=== PATIENT | male | born 1945 | race Caucasian/White ===

== ENCOUNTER → 2024-01-18 15:10 | Outpatient (REF) | payer MEDICARE, OTHER, SELFPAY | LOC: RCS 15:10 | PROVIDERS: ATTENDING PHYSICIAN Internal Medicine; FAMILY PHYSICIAN Family Medicine | DX: I42.8 Other cardiomyopathies (principal); Z95.2 Presence of prosthetic heart valve; T82.897D Other specified complication of cardiac prosthetic devices, implants and grafts, subsequent encounter; I25.10 Atherosclerotic heart disease of native coronary artery without angina pectoris | CPT/HCPCS: 93306 ==

== ENCOUNTER → 2024-03-10 13:03 | Outpatient (REF) | payer MEDICARE, OTHER, SELFPAY | LOC: RAD 13:03 | PROVIDERS: ATTENDING PHYSICIAN Surgery Vascular Surgery; FAMILY PHYSICIAN Family Medicine | DX: I73.9 Peripheral vascular disease, unspecified (principal) | CPT/HCPCS: 93922; 93925 ==

== ENCOUNTER → 2024-04-04 12:03 | Outpatient (REF) | payer MEDICARE, OTHER, SELFPAY | LOC: RAD 12:03 | PROVIDERS: ATTENDING PHYSICIAN Internal Medicine Critical Care Medicine; FAMILY PHYSICIAN Family Medicine | DX: J47.9 Bronchiectasis, uncomplicated (principal) | CPT/HCPCS: 71250 ==

== ENCOUNTER → 2024-05-06 11:07 | Outpatient (REF) | payer MEDICARE, OTHER, SELFPAY | LOC: MRI 3T 11:07 | PROVIDERS: ATTENDING PHYSICIAN Psychiatry & Neurology Neurology; FAMILY PHYSICIAN Family Medicine | DX: M54.50 Low back pain, unspecified (principal); M54.17 Radiculopathy, lumbosacral region | CPT/HCPCS: 72148 ==

== ENCOUNTER → 2024-12-05 07:47 | Outpatient (REF) | payer MEDICARE, OTHER, SELFPAY | LOC: RCS 07:47 | PROVIDERS: ATTENDING PHYSICIAN Internal Medicine; FAMILY PHYSICIAN Family Medicine | DX: Z01.810 Encounter for preprocedural cardiovascular examination (principal); I25.10 Atherosclerotic heart disease of native coronary artery without angina pectoris; I73.9 Peripheral vascular disease, unspecified | CPT/HCPCS: 78452; 93017; A9500; J2785 ==

== ENCOUNTER 2025-02-19 22:46 | Inpatient (IN) | payer MEDICARE, OTHER, SELFPAY ==
[2025-02-19] VITALS (9 sets, daily range): BP systolic 105–132; BP diastolic 45–61; BMI 26.4; BMI 25.5
--- NOTE | 2025-02-19 13:08 | ED.GENMED ---
History of Present Illness
General
Chief Complaint: Abnormal Lab Value
Time Seen by Provider: 02/19/25 12:33
History of Present Illness
History of Present Illness:
Patient presents to the emergency department from nursing facility with concern for infection. He was admitted to the half-way after lumbar spinal surgery and subsequent infection. He has a PICC line in the left upper extremity. Labs were
done at the facility which showed rising white blood cell count to 12.7 and elevated CRP. Patient is unsure of the exact surgery but states that his doctor will be calling the emergency department. Patient denies any acute complaints. Denies any
URI symptoms, cough, sore throat, chest pain, abdominal pain, diarrhea, urinary symptoms. Endorses persistent low back pain that is unchanged.
Per Dr Lee with ID [id number]
CAD, stent, AVR
L4-L5 decompression in November c/b wound dehiscense s/p debridement in December. Bone culture had pseudomonas, on cefepime 1g q8h since December
periodic elevation of LFTs chronically
Past History
Past History
ED Past Medical History: GERD, Hypercholesterolemia and Valvular disease
ED Past Surgical History: Cardiac (Aortic valve replacement with a bovine valve 2006)
Social History
Tobacco: Non-smoker
Alcohol: Occasional
Drug: None
Personal:
Living: with family
Family History
Family History: Negative Diabetes, Hypertension, Early CAD, Asthma or Cancer
Phy Exam
Physical Exam
Physical Exam:
GENERAL APPEARANCE: NAD, well developed/ well nourished
EYES lids/conjunctiva normal
EARS/NOSE/THROAT Mucous membranes moist, uvula midline without oral pharyngeal erythema, exudate or swelling
HEAD/NECK normocephalic atraumatic, neck is supple.
RESPIRATORY respiratory effort normal, speaks in full sentences, no accessory muscle use. Lungs clear to auscultation without rhonchi, wheezes, rales
CARDIAC Regular rate and rhythm, no edema.
ABDOMINAL Soft, ND/NT.
BACK there is a midline lumbar incision with a small amount of dehiscence that appears chronic in the lower third. There is some granulation tissue but no purulence or erythema. There is a suture placed in the prior drain site just left and
inferior to the incision. There is no purulence or erythema from this region either. Sacral decubitus ulcer present. No purulence or significant surrounding erythema
MUSCLES/EXTREMITIES No abnormal range of motion, no swelling.
SKIN Warm, pink and dry. No rashes
NEUROLOGICAL Speech is clear and appropriate. Normal level of consciousness. 5/5 strength in all extremities.
PSYCH Normal mood and affect. Judgement/competence is appropriate
Sepsis
Sepsis Screening
Sepsis Assessment: Sepsis
Sepsis Screen
Sepsis Screen: Sepsis
Date: 02/19/25
Time: 21:20
Course
Orders/Labs/Results
Orders:
Orders
02/19/25 12:52
CR Chest - 2 Views Urgent
Comment:
Reason For Exam: rule out pneumonia
02/19/25 13:18
Complete Blood Count/With Diff Urgent
Comprehensive Metabolic Panel Urgent
Lactic Acid Q4H
Comment: CANCEL 2nd LACTIC ACID IF 1st LACTIC ACID IS LESS THAN 2
Blood Culture Q30M
OZZY Source: Blood/Venous
Specimen Description:
Blood Culture Q30M
OZZY Source: Blood/Venous
Specimen Description:
02/19/25 13:20
Urinalysis Reflex To Culture Urgent
Date Specimen was Collected: 02/19/25
Time Specimen was Collected: 13:19
Urine Microscopic Reflex Cult Urgent
02/19/25 13:36
Cefepime HCl [Maxipime] 1,000 mg IV NOW STA
02/19/25 13:48
Sterile Water [Sterile Water For Injection] 10 ml .ROUTE .[facility]
02/19/25 14:53
COVID-19 Antigen Urgent
Source: Nasal Swab
Influenza A+B Rapid Molecular Urgent
OZZY Source: Nasal Swab
Specimen Description:
02/19/25 17:54
Acetaminophen [Tylenol] 500 mg PO NOW STA
02/19/25 21:14
Acetaminophen [Tylenol] 500 mg PO NOW STA
02/19/25 22:00
Cefepime HCl [Maxipime] 1,000 mg IV 2200
Abnormal Lab Results
02/19/25 02/19/25
13:18 13:20
WBC 10.9 H 10^3/uL
(4.8-10.8)
RBC 3.53 L 10^6/uL
(4.70-6.10)
Hgb 9.9 L g/dL
(13.0-18.0)
Hct 31.3 L %
(39.0-52.0)
MCHC 31.6 L g/dL
(33.0-37.0)
Abs Immat Gran (auto) 0.1 H 10^3/uL
(0-0.05)
Absolute Neuts (auto) 8.9 H 10^3/uL
(1.4-6.5)
Absolute Lymphs (auto) 0.4 L 10^3/uL
(1.2-3.4)
Absolute Monos (auto) 0.9 H 10^3/uL
(0.1-0.6)
Immature Gran % 0.6 H %
(0-0.5)
Neutrophils % 81.8 H %
(42.2-75.2)
Lymphocytes % 3.8 L %
(20.5-51.1)
BUN 33 H mg/dl
(9-20)
Glucose 106 H mg/dl
(70-99)
AST 117 H U/L
(17-59)
ALT 83 H U/L
(0-50)
Alkaline Phosphatase 252 H U/L
(38-126)
Ur Occult Blood Reflex 3+ A
(Negative)
Urine Bacteria (Reflex) Few A
(Negative)
Urine Albumin (Reflex) 3+ A
(Neg - Trace)
02/19/25 13:18
02/19/25 13:18
Vital Signs
Initial and Last Documented VS:
Initial Vital Signs
Pulse Resp BP Pulse Ox
91 24 117/45 98
02/19/25 12:19 02/19/25 12:19 02/19/25 12:19 02/19/25 12:19
Last Documented Vital Signs
Temp Pulse Resp BP Pulse Ox
98.1 F 85 16 123/56 98
02/19/25 14:00 02/19/25 19:12 02/19/25 19:12 02/19/25 19:12 02/19/25 19:12
*Pulse Oximetry
SaO2: 95
Oxygen Mode of Delivery: Room air
Patient hypoxic: no
*Critical Care Note
Total Time (30-74mins, 75-104mins- exclusive of procedures): Not Applicable
ED Attending Note
ED Attending Note
ED Attending Note:
Patient is generally well-appearing without evidence of sepsis clinically however given his rising white blood cell count and indwelling catheter, recent surgery, will admit to rule out bacteremia or sepsis.
Also a possibility the patient has a flareup of his PMR. However, given his difficulty with his wound healing, will forego starting steroids at this time. Attempted to admit patient to the hospital however recommended transfer for evaluation by
patients spine surgeon prior to starting any corticosteroid therapy. Also, rheumatology not available at .
Attempting transfer at this time
Spoke to hospitalist at [facility] who requested I speak to the spine surgeon to see if the patient could be admitted to their service
Transfer center unable to reach quality assurance consultant spine surgeon or patients spine surgeon for roughly 4 hours
Now attempting to admit to [facility] hospitalist again.
[facility]
No beds available, will admit here while awaiting bed.
-
Portions of this chart may have been created with voice recognition software.� Occasional wrong word or��sound alike� substitutions may have occurred due to the inherent limitations of voice recognition software.
Discharge Plan
Departure
Presentation/result/management discussed w/ accepting MD/DO: Hospitalist
Discharge Problem:
Leukocytosis
Prescriptions:
No Action
alfuzosin [Uroxatral] 10 MG tablet extended release 24 hr
10 mg PO DAILY
coenzyme Q10 [Co Q-10] 100 MG capsule
200 mg PO DAILY
nitroglycerin 0.4 MG tablet, sublingual
0.4 mg sublingual [id number] PRN (Reason: chest pain) Qty: 25 3RF
omeprazole 20 MG capsule,delayed release(DR/EC)
20 mg PO DAILY
tramadol 50 mg Tablet
50 mg PO Q6HPRN PRN (Reason: mderate pains) Qty: 0
aspirin 81 MG tablet,delayed release (DR/EC)
81 mg PO HS
famotidine 20 MG tablet
20 mg PO DAILY
amlodipine 5 MG tablet
5 mg PO DAILY
montelukast 10 MG tablet
10 mg PO QPM
finasteride 5 MG tablet
5 mg PO DAILY
cyanocobalamin (vitamin B-12) 1,000 mcg Tablet
1,000 mcg PO DAILY
Theragen Tablet
1 tab PO DAILY
hydromorphone 2 mg Tablet
2 mg PO Q4HPRN PRN (Reason: severe pains)
magnesium hydroxide [Milk of Magnesia] 400 mg/5 mL Suspension
2,400 mg PO DAILYPRN PRN (Reason: constipation)
bisacodyl [Dulcolax (bisacodyl)] 10 mg Suppository
10 mg ID DAILYPRN PRN (Reason: constipation)
Fleet Enema 19-7 gram/118 mL Enema
118 ml ID DAILYPRN PRN (Reason: constipation)
pyridoxine (vitamin B6) 50 mg Tablet
50 mg PO DAILY
hydrocortisone 2.5 % Cream
1 applic TOPICAL DAILY
furosemide [Lasix] 20 mg Tablet
20 mg PO MOWEFR
metoprolol succinate [Toprol XL] 25 mg Tablet Extended Release 24 Hr
25 mg PO DAILY
fluticasone propion-salmeterol [Advair Diskus] 100-50 mcg/dose Blister With Device
1 inh INHALATION R BID
colchicine 0.6 mg Tablet
0.6 mg PO BID
ezetimibe [Zetia] 10 mg Tablet
10 mg PO DAILY
rosuvastatin [Crestor] 40 mg Tablet
40 mg PO HS
Saccharomyces boulardii [Florastor] 250 mg Capsule
250 mg PO DAILY
lactulose 10 gram/15 mL Solution
20 g PO .[id number] PRN (Reason: constipation)
cholecalciferol (vitamin D3) [Vitamin D3] 25 mcg (1,000 unit) Tablet
25 mcg PO DAILY
calcium carbonate-vitamin D3 [Calcium 500 + D] 500 mg-10 mcg (400 unit) Tablet
1 tab PO DAILY
diclofenac sodium [Voltaren] 1 % Gel
4 g TOPICAL TID
cefepime in dextrose 5 % 2 gram/50 mL Piggyback
1 g IV TID
Rx Instructions:
give until 03/03/25
magnesium oxide 400 mg magnesium Tablet
400 mg PO DAILY
Senna Plus 8.6-50 mg Capsule
1 tab PO BID
Referrals:
Tenzin Drake MD [Family Provider, Family Practice]
Interventions
Interventions:
*Risk Screen - Suicide Last Done: 02/19/25 12:27
*General Assessment Last Done: 02/19/25 12:27
*Neglect/Abuse Screening Last Done: 02/19/25 12:27
*ED COVID-19 Vaccine History Last Done: 02/19/25 13:31
Discharge Date and Time
Print Language: MALAYSIAN
[2025-02-19 13:29] LABS: Hematocrit 31.3 % (39.0-52.0); Hemoglobin 9.9 g/dL (13.0-18.0); Mean Corp Hgb Conc. 31.6 g/dL (33.0-37.0); Mean Corpuscular Volume 88.7 fL (80.0-94.0); Nucleated Red Blood Cells % 0 % (-); Platelet Count 283 10^3/uL (130-400); Red Cell Dist. Width 13.3 % (11.5-14.5)
[2025-02-19 13:41] LABS: Urine Character Clear (Clear)
[2025-02-19] MEDS: MAXIPIME 1000 MG IV ×2 (13:54→21:20)
[2025-02-19 14:02] LABS: Urine Squamous Cell 0-2 /LPF (Few)
[2025-02-19 14:04] LABS: Urine Red Blood Cell 0-2 /HPF (0-2); Urine White Cell 0-2 /HPF (0-5)
[2025-02-19 14:14] LABS: ALT (SGPT) 83 U/L (0-50); AST (SGOT) 117 U/L (17-59); Albumin 3.6 g/dl (3.5-5.0); Alkaline Phosphatase 252 U/L (38-126); Blood Urea Nitrogen 33 mg/dl (9-20); Calcium 9.3 mg/dl (8.4-10.2); Carbon Dioxide 24 mmol/L (22-30); Chloride 105 mmol/L (98-107); Estimated Creatinine Clearance 64 ml/min; Glucose 106 mg/dl (70-99); Potassium 4.1 mmol/L (3.5-5.1); Sodium 135 mmol/L (135-145); Total Protein 6.3 g/dl (6.3-8.2); eGFR > 60.00
[2025-02-19 15:18] LABS: COVID-19 Antigen Negative (Negative)
--- NOTE | 2025-02-19 15:32 | HPS.HSE ---
Addendum entered and electronically signed by Les Falk MD 02/19/25 16:36:
This is a consultation note
79-year-old male with extensive past medical history of laminectomy status post complication with wound dehiscence status post debridement and wound VAC placement. Patient had extensive surgery done by orthopedic and plastic surgery. Patient
recently underwent for wound VAC removal. Patient also had CSF leak and was also found to have Pseudomonas infection. Patient was started on IV antibiotics with cefepime with plan for ended March 03, 2025. Patient antibiotics are being managed
by Dr. Nair. Of note patient also has history of polymyalgia rheumatica and for the past 1 week has significant right upper extremity pain, bilateral hip pain and weakness. Patient mobility has significantly decreased. Patient underwent workup at
the assisted where it was found that patient elevated WBC and increase in inflammatory markers. Patient was sent in to the hospital. There was concern that patient with rheumatological flareup. Patient appetite also been decreased. Patient
not on chronic steroids for PMR.
General no acute distress
HEENT neck is supple trachea is midline
Pulmonary nonlabored respiration, speaking in full sentences,
Abdomen nondistended
Musculoskeletal-lumbar region open wound with drainage noted on the dressing. Upon deep palpation patient with pain however no drainage was noted. Patient also with sacral wound.
Extremities 2+ pitting edema bilateral lower extremity
Neuro awake alert oriented.
Assessment and plan
79-year-old male with extensive past medical history status post laminectomy status post debridement status post wound VAC placement status post infection on IV cefepime. Patient also with wound dehiscence and now with weakness associated with
possible PMR flareup with need for patient to be started on glucocorticoids. Patient case was discussed with his infectious disease doctor. per patient's spouse infectious disease Dr. Lee did recommend patient to be transferred to [facility] however patient was already on his way to the hospital. Discussed case with regarding for starting glucocorticoids as patient with infection active and wound dehiscence. He did mention that his risk versus benefit ratio
especially in the setting of wound dehiscence not complete closure will need to be weighed in and will defer to family. This was discussed with patient and family that this is a extremely complicated situation with wound being not completely
closed and with active infection undergoing treatment. Patient also with elevated leukocytosis and inflammatory marker. Patient care would be better served at the primary care institution where he underwent surgery and the wound being looked after
patient primary surgical team and also by infectious disease doctor and consider rheumatological evaluation. Family agreed for patient to be transferred to [facility]. This was relayed with ER attending who will initiate transfer.
I spent a total of 65 minutes with the patient or on the floor. More than 50% of this time involved counseling and coordination of care.
Addendum entered and electronically signed by VICKIE Gunderson 02/19/25 16:28:
Below note serves as a consult note not H&P.
Original Note:
Family Physician
-
Family Physician: Tenzin Drake
Chief Complaint
-
abnormal out patient labs
History of Present Illness
Patient is a 79-year-old male with past medical history significant for hypertension, hyperlipidemia, CAD, nonischemic cardiomyopathy, PAD, BPH, GERD and Hx polymyalgia rheumatica who presented to [facility] ED for evaluation of abnormal out patient labs.
Patient was admitted to rehab facility post laminectomy with post surgical complications including infection from surgical wound infection. Rehab noted increased WBC and elevated CRP and felt patient needed workup in ED. Patient had L4-L5
decompression in November c/b wound dehiscense s/p debridement in December. Bone culture had pseudomonas, on cefepime 1g q8h since December with end date of 03/03/2025. Patient denies any acute complaints at this time. Denies fever, chills, cough, shortness
of breath, nausea, vomiting, diarrhea or urinary symptoms.
Medical History
Past Medical History
Past Medical History: Reports Other
Additional Past Medical History:
hypertension
hyperlipidemia
CAD
nonischemic cardiomyopathy
PAD
BPH
GERD
polymyalgia rheumatica
Past Surgical History: Reports Other
Additional Past Surgical History:
Hemorrhoidectomy
Aortic Valve 04/[address] [facility] [address] Valladares
R Fem bypass Dr. Grove [facility] 02/2017
plastic surgery skin graft R foot
rt foot bunionectomy
Sinus sx x2 1995, 2010
06/15 2 stents OM@ and RCA
ERCP 2021
colonoscopy 01/2022
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
L4-L5 decompression 11/2024
Social History
Tobacco: Non-smoker
Alcohol: Occasional
Drug: None
Personal:
Family History
Family History: Not pertinent
Allergies / Home Medications
Allergies reflects when Allergies were last updated in [facility].
Home Medications with original date entered in [facility]
Allergy/Medication List:
Allergies
Allergy/AdvReac Type Severity Reaction Status Date / Time
adhesive tape Allergy Unknown Verified 02/19/25 12:19
amoxicillin (From Augmentin) Allergy Unknown Verified 02/19/25 12:19
ceftriaxone Allergy Rash Verified 02/19/25 12:19
clavulanic acid (From Allergy Unknown Verified 02/19/25 12:19
Augmentin)
clopidogrel (From Plavix) Allergy Rash Verified 02/19/25 12:19
hydroxychloroquine sulfate Allergy Rash Verified 02/19/25 12:19
(From Plaquenil)
oxycodone Allergy Unknown Verified 02/19/25 12:19
sulfamethoxazole (From Allergy Hives Verified 02/19/25 12:19
Bactrim)
trimethoprim (From Bactrim) Allergy Hives Verified 02/19/25 12:19
amoxicillin trihydrate (From AdvReac vomiting Verified 02/19/25 12:19
Augmentin)
pantoprazole (From Protonix) AdvReac Nausea Verified 02/19/25 12:19
Home Medications
alfuzosin 10 mg tablet,extended release 24 hr (Uroxatral) 10 mg PO DAILY 06/03/10
coenzyme Q10 100 mg capsule (Co Q-10) 200 mg PO DAILY 06/12/18
nitroglycerin 0.4 mg sublingual tablet 0.4 mg sublingual [id number] PRN chest pain #25 tabs 06/13/18
omeprazole 20 mg capsule,delayed release 20 mg PO DAILY 01/24/19
tramadol 50 mg tablet 50 mg PO Q6HPRN PRN mderate pains ##0 09/09/20
amlodipine 5 mg tablet 5 mg PO DAILY 06/13/21
aspirin 81 mg tablet,delayed release 81 mg PO HS 06/13/21
famotidine 20 mg tablet 20 mg PO DAILY 06/13/21
finasteride 5 mg tablet 5 mg PO DAILY 06/13/21
montelukast 10 mg tablet 10 mg PO QPM 06/13/21
Saccharomyces boulardii 250 mg capsule (Florastor) 250 mg PO DAILY 02/19/25
bisacodyl 10 mg rectal suppository (Dulcolax (bisacodyl)) 10 mg AR DAILYPRN PRN constipation 02/19/25
calcium 500 mg (as carbonate)-vitamin D3 10 mcg (400 unit) tablet (Calcium 500 + D) 1 tab PO DAILY 02/19/25
cefepime 2 gram/50 mL in dextrose 5 % intravenous piggyback 1 g IV TID 02/19/25
cholecalciferol (vitamin D3) 25 mcg (1,000 unit) tablet (Vitamin D3) 25 mcg PO DAILY 02/19/25
colchicine 0.6 mg tablet 0.6 mg PO BID 02/19/25
cyanocobalamin (vitamin B-12) 1,000 mcg tablet 1,000 mcg PO DAILY 02/19/25
diclofenac sodium 1 % topical gel 4 g topical TID b/l shoulders 02/19/25
ezetimibe 10 mg tablet (Zetia) 10 mg PO DAILY 02/19/25
fluticasone 100 mcg-salmeterol 50 mcg/dose blistr powdr for inhalation (Advair Diskus) 1 inh inhalation R BID 02/19/25
furosemide 20 mg tablet (Lasix) 20 mg PO MOWEFR 02/19/25
hydrocortisone 2.5 % topical cream 1 applic topical DAILY right flank 02/19/25
hydromorphone 2 mg tablet 2 mg PO Q4HPRN PRN severe pains 02/19/25
lactulose 10 gram/15 mL oral solution 20 g PO .[id number] PRN constipation 02/19/25
magnesium hydroxide 400 mg/5 mL oral suspension (Milk of Magnesia) 2,400 mg PO DAILYPRN PRN constipation 02/19/25
magnesium oxide 400 mg PO DAILY 02/19/25
metoprolol succinate 25 mg tablet,extended release 24 hr (Toprol XL) 25 mg PO DAILY 02/19/25
pyridoxine (vitamin B6) 50 mg tablet 50 mg PO DAILY 02/19/25
rosuvastatin 40 mg tablet (Crestor) 40 mg PO HS 02/19/25
sennosides 8.6 mg-docusate sodium 50 mg capsule (Senna Plus) 1 tab PO BID 02/19/25
sodium phosphates 19 gram-7 gram/118 mL enema (Fleet Enema) 118 ml AR DAILYPRN PRN constipation 02/19/25
therapeutic multivitamin 1 tab PO DAILY 02/19/25
Review of Systems
-
History Source: Patient
Constitutional: Reports No Symptoms
EENT: Reports No Symptoms
Respiratory: Reports No Symptoms
Cardiac: Reports No Symptoms
Abdomen/GI: Reports No Symptoms
: Reports No Symptoms
Musculoskeletal: Reports No Symptoms
Skin: Reports No Symptoms
Neurological: Reports No Symptoms
Endocrine: Reports No Symptoms
Hematologic/Lymphatic: Reports No Symptoms
Psych: Reports No Symptoms
Physical Exam
Vital Signs
Vital Signs
Temp Pulse Resp BP Pulse Ox
98.1 F 84 17 128/51 96
02/19/25 14:00 02/19/25 15:00 02/19/25 15:00 02/19/25 15:00 02/19/25 15:00
Physical Exam
General: Well Developed, Well Nourished, No Apparent Distress and Conversant
HEENT: NormoCephalic, Moist mucous membranes, Atraumatic, Nose Appears Normal and Ears Appear Normal
Respiratory: Clear and Non Labored Respirations; No Wheezes, Rales or Rhonchi
Cardiac: S1/S2 and Regular Rhythm; No Peripheral Edema
GI: Soft, Non Tender, Non Distended and Normal Bowel Sounds; No Organomegaly
Rectal: Deferred by Provider
Genito-urinary: Deferred by me
Musculoskeletal: No Clubbing, No Cyanosis and No Edema
Skin: Warm and IV/Catheter Site
Neuro: Awake, AO x 3 and Nonfocal/grossly intact
Psych: Calm
Laboratory Results
-
02/19/25 13:18
02/19/25 13:18
Laboratory Results
Lactic Acid Cancelled 02/19/25 17:00
Total Bilirubin 0.9 mg/dl (0.2-1.3) 02/19/25 13:18
AST 117 U/L (17-59) H 02/19/25 13:18
ALT 83 U/L (0-50) H 02/19/25 13:18
Alkaline Phosphatase 252 U/L (38-126) H 02/19/25 13:18
Data Reviewed
-
Diagnostic Radiology: Report Reviewed by me (CXR: No acute disease of the chest.)
Lab Data: Labs Reviewed by me (WBC 10.9, hgb 9.9, hct 31.3, Neut 81.8, AST 117, ALT 83, Alk Phos 252)
Impression/Plan
-
IMPRESSION/PLAN:
#abnormal out patient lab results
#current infectious process vs. PMR exacerbation vs.
WBC 10.9, hgb 9.9, hct 31.3, Neut 81.8, AST 117, ALT 83, Alk Phos 252
CXR: No acute disease of the chest.
- Admit to med/surg
- continue IV cefepime q8
- start prednisone 40mg, monitor for improvement
- consider transfer to [facility] if no improvement
#hypertension
- continue amlodipine and metoprolol
#hyperlipidemia
- continue ezetimibe and rosuvastatin
#CAD
#nonischemic cardiomyopathy
- continue aspirin
#PAD
#BPH
- continue alfuzosin and finasteride
#GERD
- continue famotidine and omeprazole
#Hx polymyalgia rheumatica
Code status: full code
DVT prophylaxis: lovenox sq
[2025-02-19] MEDS: TYLENOL 500 MG PO ×2 (18:09→21:20)
--- NOTE | 2025-02-19 21:40 | W.PN.UPDATE ---
Update Note
Progress Note Update
This is an update to the initial H&P which was stated to be a consult note but patient has not been admitted pending availability of bed at the transfer receiving institution.
I agree with the initial H&P as well as the addendum placed by the hospitalist. I concur with the general overview of the plan.
Briefly, patient is a 79-year-old with past medical history significant for laminectomy status post complication with dehiscence, status post debridement and wound VAC placement been managed extensively by orthopedic and plastic surgery who has now
undergone a wound VAC removal complicated by CSF leak and found to have Pseudomonas infection on chronic IV antibiotics with cefepime that is planned to end for March 03 who presents to the emergency department with weakness. Stated in prior
notes, there is concern for wound dehiscence and also concern for flare of his polymyalgia rheumatica. He is not chronically on steroids for PMR. He has suffered decreased mobility. In the [facility] and was found to have elevated inflammatory
markers and WBCs and sent to the emergency department for further evaluation.
In the ED he has been afebrile, blood pressure was 120/56 pulse of 83 and he was satting 98% on room air. CBC shows a white count of 10.9 but otherwise unremarkable electrolytes. Creatinine was stable.
Examination of the spine shows lumbar region open wound with drainage noted on the dressing. Upon deep palpation patient with pain however no drainage was noted. Patient also with sacral wound.
Patient has been managed by team at [facility]. He has Dr. Lee as a infectious disease specialist and is plastics and orthopedic surgeon were at [place]. After extensive discussion with Dr. Orozco it was felt that the patient will be better
staffed pain way can be evaluated by surgery. ED initiated transfer however the surgeon could not be reached and the transfer was made to the hospitalist service at [place] and patient is awaiting a bed. The patient has been in the ED for over 9
hours and it is unclear when a bed will be available. Will admit here pending the availability of the bed.
- Immediate plans are as follows
- Blood cultures, wound cultures
- Continue IV cefepime
- Broaden if spike fever or if sensitivities differ on culture
- Continue pain control
- With regards to possible PMR, cannot differentiate from an acute infectious process at this time and given the possibility of ongoing infection we will hold off on steroids
- ID consultation
Will notify family about the delay in transfer due to lack of bed availability and keeping patient here for medical management until bed opens up at pain
[2025-02-20] MEDS: DICLOFENAC 1% TOPICAL GEL 4 GRAM TOPICAL ×2 (00:12→08:31)
[2025-02-20] MEDS: ASPIR LOW (ENTERIC COATED) 81 MG PO ×2 (00:15→21:11)
[2025-02-20] MEDS: CRESTOR 40 MG PO ×2 (00:15→21:11)
--- NOTE | 2025-02-20 05:13 | PTCARENOTE ---
Pt admitted from ED. AAOx3. Pt afebrile, VSS. L arm PICC and R forearm IV C/D/I. Lungs clear, pt on room air. OOB to chair with assist x2. Pt voiding to urinal. Plan for transfer to [facility], awaiting bed availability. Bed in lowest
position. Call nova within reach.
[2025-02-20] MEDS: MAXIPIME 1000 MG IV ×4 (05:37→23:28)
[2025-02-20] MEDS: STERILE WATER FOR INJECTION 10 ML IV ×4 (05:37→23:27)
[2025-02-20 07:00] VITALS: BP 112/56
[2025-02-20 07:17] LABS: Hematocrit 34.1 % (39.0-52.0); Hemoglobin 11.0 g/dL (13.0-18.0); Mean Corp Hgb Conc. 32.3 g/dL (33.0-37.0); Mean Corpuscular Volume 89.0 fL (80.0-94.0); Platelet Count 333 10^3/uL (130-400); Red Cell Dist. Width 13.2 % (11.5-14.5)
[2025-02-20 07:41] LABS: ALT (SGPT) 71 U/L (0-50); AST (SGOT) 68 U/L (17-59); Albumin 3.8 g/dl (3.5-5.0); Alkaline Phosphatase 253 U/L (38-126); Blood Urea Nitrogen 29 mg/dl (9-20); Calcium 9.8 mg/dl (8.4-10.2); Carbon Dioxide 24 mmol/L (22-30); Chloride 107 mmol/L (98-107); Estimated Creatinine Clearance 64 ml/min; Glucose 100 mg/dl (70-99); Potassium 4.0 mmol/L (3.5-5.1); Sodium 138 mmol/L (135-145); Total Protein 6.6 g/dl (6.3-8.2); eGFR > 60.00
[2025-02-20] MEDS: ADVAIR HFA 45/21 MCG INHALER 2 PUFF INH ×2 (07:45→19:53)
[2025-02-20] MEDS: SENOKOT-S 1 TABLET PO ×2 (08:28→21:11)
[2025-02-20] MEDS: PROTONIX 40 MG PO (08:28)
[2025-02-20] MEDS: NORVASC 5 MG PO (08:28)
[2025-02-20] MEDS: TOPROL XL 25 MG PO (08:29)
[2025-02-20] MEDS: ZETIA 10 MG PO (08:29)
[2025-02-20] MEDS: FLOMAX 0.4 MG PO (08:29)
[2025-02-20] MEDS: VITAMIN B-6 50 MG PO (08:29)
[2025-02-20] MEDS: COLCHICINE 0.6 MG PO ×2 (08:29→21:11)
[2025-02-20] MEDS: MAGNESIUM OXIDE 400 MG PO (08:29)
[2025-02-20] MEDS: PROSCAR 5 MG PO (08:29)
[2025-02-20] MEDS: PEPCID 20 MG PO (08:29)
[2025-02-20] MEDS: FLORASTOR 250 MG PO (08:30)
[2025-02-20] MEDS: HYDROCORTISONE 2.5% CREAM 1 APPLIC TOPICAL (08:31)
[2025-02-20] MEDS: LASIX 20 MG PO (08:34)
--- NOTE | 2025-02-20 10:04 | WOUNDNOTE ---
R PLANTAR 1ST TOE
--- NOTE | 2025-02-20 10:06 | WOUNDNOTE ---
[facility] RN note: Patient admitted with leukocytosis. Patient is . He was admitted from SNF rehab. Plan is transfer to [facility].
See H&P for complete history.
PMH: L4-L5 decompression laminectomy surgery 11/2024, wound dehiscence December 2024 s/p debridement, extensive surgery by orthopedic surgeon and plastic surgeon, CSF leak-pseudomonas infection, on IV Cefepime till 03/03/25, polymyalgia rheumatica,
aortic valve surgery 2006, Foot surgery, R fem bypass by Dr. Grove 2016.
Wound Location and type/assessment: Patient admitted with: Lumbar surgical wound with yellow fibrin cover and local erythema. Small serous drainage. Sacral stage 3 pressure injury pink with yellow fibrin with sacral/buttocks stage 2 openings and
macerated skin. R plantar great toe neuropathic dermal ulcer vs callus. Heels blanchable red. +2 ankle edema, edema improved as per patient. Pedal pulses easily heard via portable Doppler.
Appetite: fair.
Pressure redistribution devices in place: [employer] Accumax. Air chair cushion. Patient currently sitting in chair. He stood with walker and supervision during wound care.
Plan: Lumbar and sacral dressings changed. Protective dressing applied to R great toe. Second air chair cushion placed at lower back in chair.
Will confirm orders with Dr. Mcgrath and will discuss with CATARINA Oneill. Recommend an air mattress if patient not transferred today to [facility].
Care plan to be updated and will follow as needed.
Note to case management of equipment requested for discharge:
Recommend follow up at wound care center upon discharge.
--- NOTE | 2025-02-20 10:09 | CON.ID ---
Consultation
-
Date/Time Consultation Requested: 02/19/25 22:52
Date/Time Consultation Performed: 02/20/25 10:09
Requesting Provider: Ashleigh LUBIN
Performing Provider: Dr Oropeza
Reason for Consultation: Pseudomonas infection
Chief Complaint / Past History
Chief Complaint
pseudomonas infection
History of Present Illness
Mr Jimenez is an 79 year old male with past medical history notable for laminectomy 12/19 that was complicated by wound dehiscence and CSF leak. Patient is s/p debridement, wound vac placement, bone culture at that time with pseudomonas. He was
found to have a pseudomonas infection and has been on IV cefepime with plan to continue through feb. Cefepime has been dosed at 1 gm IV q8hrs. His wound vac has subsequently been removed. He is under the management of ID Dr Nair. His
outpatient course has been complicated by a flare of previous PMR with significant right UE pain as well as bilateral hip pain and weakness, the pain decreased his mobility. He was referred to the hospital for assessment and treatment. The primary
medical team reviewed the case with his ID doctor Korey and there is a plan for transfer to [facility] for assessment with rheumatology and his ID doctor. Denies fever, chills, cough, shortness of breath, nausea, vomiting, diarrhea or urinary
symptoms. History obtained by review of electronic and paper chart - transfer forms were not available on the paper chart.
Past History
Additional Past Medical History:
hypertension
hyperlipidemia
CAD
nonischemic cardiomyopathy
PAD
BPH
GERD
polymyalgia rheumatica
Additional Past Surgical History:
Hemorrhoidectomy
Aortic Valve 04/[address] [facility] [address] Valladares
R Fem bypass Dr. Grove [facility] 02/2017
plastic surgery skin graft R foot
rt foot bunionectomy
Sinus sx x2 1995, 2010
06/15 2 stents OM@ and RCA
ERCP 2021
colonoscopy 01/2022
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
L4-L5 decompression 11/2024
Allergy History:
adhesive tape Allergy (Verified 02/19/25 12:19)
Unknown
amoxicillin (From Augmentin) Allergy (Verified 02/19/25 12:19)
Unknown
ceftriaxone Allergy (Verified 02/19/25 12:19)
Rash
clavulanic acid (From Augmentin) Allergy (Verified 02/19/25 12:19)
Unknown
clopidogrel (From Plavix) Allergy (Verified 02/19/25 12:19)
Rash
hydroxychloroquine sulfate (From Plaquenil) Allergy (Verified 02/19/25 12:19)
Rash
oxycodone Allergy (Verified 02/19/25 12:19)
Unknown
sulfamethoxazole (From Bactrim) Allergy (Verified 02/19/25 12:19)
Hives
trimethoprim (From Bactrim) Allergy (Verified 02/19/25 12:19)
Hives
amoxicillin trihydrate (From Augmentin) Adverse Reaction (Verified 02/19/25 12:19)
vomiting
pantoprazole (From Protonix) Adverse Reaction (Verified 02/19/25 12:19)
Nausea
Medications Reviewed: Yes
Social History
Tobacco: Non-Smoker
Alcohol: Occasional
Drug: None
Family History
Family History: Not Pertinent
Review of Systems
Review of Systems
A 12 point ROS was reviewed and negative except as listed above.
Vital Signs
Temp Pulse Resp BP Pulse Ox
97.8 F 81 19 112/56 97
02/20/25 07:00 02/20/25 07:49 02/20/25 07:49 02/20/25 07:00 02/20/25 07:49
Physical Exam
Physical Exam
Constitutional: No Acute Distress
Cardiovascular: Regular Rate and S1/S2; Negative Murmur or Rub
Pulmonary: Clear and Symmetric; Negative Wheezes, Rales or Rhonchi
Gastrointestinal: Soft, Non Tender, Non Distended and Normal Bowel Sounds
Skin: Warm and Dry; Negative Rash or Jaundice
Wound: Other (approx 2 cm of dehiscence with yellow slough in the midline surgical wound, no odor, no visible deep structures)
Lines: PICC (nontender, no drainage)
Lab / Diagnostic Study Results
02/20/25 06:54
02/20/25 06:54
Abs Immat Gran (auto) 0.1 10^3/uL (0-0.05) H 02/19/25 13:18
Absolute Neuts (auto) 8.9 10^3/uL (1.4-6.5) H 02/19/25 13:18
Absolute Lymphs (auto) 0.4 10^3/uL (1.2-3.4) L 02/19/25 13:18
Absolute Monos (auto) 0.9 10^3/uL (0.1-0.6) H 02/19/25 13:18
Absolute Basos (auto) 0.0 10^3/uL (0-0.2) 02/19/25 13:18
Immature Gran % 0.6 % (0-0.5) H 02/19/25 13:18
Neutrophils % 81.8 % (42.2-75.2) H 02/19/25 13:18
Lymphocytes % 3.8 % (20.5-51.1) L 02/19/25 13:18
Monocytes % 8.3 % (1.7-9.3) 02/19/25 13:18
Eosinophils % 5.3 % (0-6) 02/19/25 13:18
Basophils % 0.2 % (0-2) 02/19/25 13:18
Lactic Acid Cancelled 02/19/25 17:00
Ur Squamous Epith Cells 0-2 /LPF (Few) 02/19/25 13:20
Microbiology Results
Micro:
02/19/25 14:53 Influenza Types A & B (MYKEL) - Final
Nasal Swab Negative for Influenza A & B, NAAT
Negative results must be combined with clinical observations
and patient history.
Nucleic Acid Amplification test (NAAT)performed on the
[employer] platform.
02/19/25 13:18 Blood Culture - Pending
Blood/Venous
02/19/25 13:18 Blood Culture - Pending
Blood/Venous
Assessment / Plan
Surgical site infection - laminectomy
due to Pseudomonas
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
Possible PMR flare
- L sided PICC line in place
- continue cefepime dose adjusted for current renal function to 1 g q6 hrs; duration is planned through feb
- follow blood cultures
- pain management per hospitalist
- agree with pending transfer
--- NOTE | 2025-02-20 11:05 | WOUNDNOTE ---
[facility] RN Note: t/c [facility] rehab, spoke with nurse Erika who stated patient's back wound care order is clean with saline, apply ABD pad daily. Erika stated his current sacral ulcer wound care is clean with Dakin's solution, Santyl, silicone
border foam daily. Obtained local wound care orders from Dr. Falk including bilateral knee high Tubigrip as tolerated (remove q hs) and flat surgical shoes as tolerated. Care plan and discharge instructions updated.
--- NOTE | 2025-02-20 12:40 | W.PN.HOSP.TC ---
Addendum entered and electronically signed by Les Falk MD 02/22/25 12:37:
Late addendum. Patient was seen and examined on 02/20/2025
General: Well Developed, Well Nourished, No Apparent Distress and Conversant, Sitting in chair
HEENT: NormoCephalic, Moist mucous membranes, Atraumatic, Nose Appears Normal and Ears Appear Normal
Respiratory: Clear and Non Labored Respirations; No Wheezes, Rales or Rhonchi
Cardiac: S1/S2 and Regular Rhythm; No Peripheral Edema
GI: Soft, Non Tender, Non Distended and Normal Bowel Sounds; No Organomegaly
Rectal: Deferred by Provider
Genito-urinary: Deferred by me
Musculoskeletal: No Clubbing, No Cyanosis and No Edema
Skin: Warm and macular/erythematous rash on back
Neuro: Awake, AO x 3 and Nonfocal/grossly intact
Psych: Calm
Addendum entered and electronically signed by Les Falk MD 02/20/25 17:03:
Updated patient daughter over the phone in details.
Original Note:
Today's Communication/Plan
-
blood culture in lab
Cefepime dose adjusted to q6h
Await transfer to [facility]
Assessment / Plan
Assessment / Plan
#Diffuse body ache concern for polymyalgia rheumatica flareup versus infectious
#Severe leukocytosis concern for infectious flareup
CXR: No acute disease of the chest.
-Continue IV cefepime. Dose adjusted to every 6 hours per creatinine clearance per ID
- Blood culture pending in lab
-Awaiting transfer to [facility] for further management
# History of laminectomy lumbar region status post complication with wound dehiscence status post infection status post wound VAC placement and removal
- Continue with IV cefepime as above.
- Wound still open to mildly open. Not able to express any purulent drainage.
- Unable to start any anti-inflammatory medication regimen especially steroids in the setting of polymyalgia rheumatica flareup as patient remains with wound not completely close and concern for wound dehiscence which better be managed at patient
primary surgical site Hospital.
- Patient follows closely with orthopedic, plastic surgery and infectious disease at [facility].
#Primary sclerosing cholangitis
-Patient follows with [facility] corrections identification technician
-AST ALT improvement. Further management once transferred to [facility].
#hypertension
- continue amlodipine and metoprolol
#hyperlipidemia
- continue ezetimibe and rosuvastatin
#CAD status post stents
#nonischemic cardiomyopathy
- continue aspirin
#PAD
#BPH
- continue alfuzosin and finasteride
#GERD
- continue famotidine and omeprazole
Code status: full code
DVT prophylaxis: lovenox sq
Anticipated Discharge: > 48 hours
Subjective/Interval History
-
Date of Service: February 20, 2025
sitting in chair
states of hip pain/shoulder pain/wrist pain
in good spirits
Objective Data
-
Labs:
Laboratory Results
02/20/25
06:54
WBC 12.4 H
Hgb 11.0 L
Hct 34.1 L
Plt Count 333
Sodium 138
Potassium 4.0
Chloride 107
Carbon Dioxide 24
BUN 29 H
Creatinine 1.0
Glucose 100 H
Calcium 9.8
Total Bilirubin 1.0
AST 68 H
ALT 71 H
Alkaline Phosphatase 253 H
Vital Signs:
Vital Signs
Temp Pulse Resp BP Pulse Ox
97.8 F 81 19 112/56 97
02/20/25 07:00 02/20/25 07:49 02/20/25 07:49 02/20/25 07:00 02/20/25 07:49
I&O
02/19/25 02/20/25 02/21/25
06:59 06:59 06:59
Output Total 150 / 150 400 / 400
Balance -150 / -150 -400 / -400
Data Reviewed
-
Total Time Spent with Patient (in minutes): 55
[2025-02-20] MEDS: MIRALAX 17 GRAMS PO (12:58)
--- NOTE | 2025-02-20 14:20 | WOUNDNOTE ---
[facility] RN note: Confirmed with RN Nino that patient now has a [facility] Max air bed.
[2025-02-20 15:00] VITALS: BP 120/50
[2025-02-20] MEDS: DICLOFENAC 1% TOPICAL GEL TOPICAL ×3 (15:25→21:16)
[2025-02-20] MEDS: SINGULAIR 10 MG PO (17:19)
[2025-02-20] MEDS: LOVENOX 40 MG SC (17:19)
--- NOTE | 2025-02-20 18:11 | CM ---
Patient seen at bedside with and daughter
IA completed
History of laminectomy lumbar region status post complication with wound dehiscence status post infection status post wound VAC placement and removal
Came in from [facility] as he was there for STR post surgery
Lives with in 1 story home, 1 [address]
plof: independent with walker
DME: Walker
Has had VN in past, and [facility]
PLAN: Transfer to [facility] when bed available
[2025-02-20] MEDS: TYLENOL 650 MG PO (18:27)
--- NOTE | 2025-02-20 22:14 | W.PN.UPDATE ---
Update Note
Progress Note Update
Notified by RN patient family noticed worsening rash on patient's back. Upon assessment pinpoint pimple like rash appears scattered throughout the upper back and around the trunk. He does report some pruritus associated with it. Patient reports rash
as been there for 'a while' and ordered hydrocortisone cream has been helping. Offered to order Benadryl, patient refused starting he does not want to add anymore medications. Nursing to continue to monitor. Rx change Hydrocortisone cream daily to
BID.
[2025-02-20 23:26] VITALS: BP 117/53
[2025-02-21] MEDS: STERILE WATER FOR INJECTION 10 ML IV ×3 (05:29→18:33)
[2025-02-21] MEDS: MAXIPIME 1000 MG IV ×3 (05:29→18:15)
[2025-02-21 05:52] LABS: Hematocrit 36.1 % (39.0-52.0); Hemoglobin 11.5 g/dL (13.0-18.0); Mean Corp Hgb Conc. 31.9 g/dL (33.0-37.0); Mean Corpuscular Volume 87.8 fL (80.0-94.0); Platelet Count 362 10^3/uL (130-400); Red Cell Dist. Width 13.2 % (11.5-14.5)
--- NOTE | 2025-02-21 06:22 | PTCARENOTE ---
Red raised rash noted to back throughout, spreading to buttocks B/L and to B/L shoulders/upper arms. Patient at first stated this is not new and has been there for a 'while.' and daughter at bedside stating that they did not notice it to be
that bad in the past, but that it had been present on admission in the ED. Patient does state that rash is itchy, not painful/sore. VICKIE Orozco notified and came to unit to assess. Hydrocortisone cream parameters changed to scheduled BID. Will
monitor.
[2025-02-21] MEDS: ADVAIR HFA 45/21 MCG INHALER 2 PUFF INH ×2 (07:58→19:48)
[2025-02-21] MEDS: PROTONIX 40 MG PO (08:17)
[2025-02-21] MEDS: PEPCID 20 MG PO (08:17)
[2025-02-21] MEDS: FLOMAX 0.4 MG PO (08:17)
[2025-02-21] MEDS: VITAMIN B-6 50 MG PO (08:18)
[2025-02-21] MEDS: ZETIA 10 MG PO (08:18)
[2025-02-21] MEDS: MAGNESIUM OXIDE 400 MG PO (08:18)
[2025-02-21] MEDS: FLORASTOR 250 MG PO (08:18)
[2025-02-21] MEDS: MIRALAX 17 GRAMS PO (08:18)
[2025-02-21] MEDS: TOPROL XL 25 MG PO (08:18)
[2025-02-21] MEDS: PROSCAR 5 MG PO (08:18)
[2025-02-21] MEDS: COLCHICINE 0.6 MG PO ×2 (08:18→21:43)
[2025-02-21] MEDS: NORVASC 5 MG PO (08:18)
[2025-02-21 08:21] LABS: ALT (SGPT) 70 U/L (0-50); AST (SGOT) 63 U/L (17-59); Albumin 4.0 g/dl (3.5-5.0); Alkaline Phosphatase 228 U/L (38-126); Blood Urea Nitrogen 33 mg/dl (9-20); Calcium 9.7 mg/dl (8.4-10.2); Carbon Dioxide 24 mmol/L (22-30); Chloride 106 mmol/L (98-107); Estimated Creatinine Clearance 64 ml/min; Glucose 110 mg/dl (70-99); Potassium 4.1 mmol/L (3.5-5.1); Sodium 139 mmol/L (135-145); Total Protein 6.9 g/dl (6.3-8.2); eGFR > 60.00
[2025-02-21] MEDS: SENOKOT-S 1 TABLET PO ×2 (08:25→21:38)
[2025-02-21] MEDS: TYLENOL 650 MG PO (08:30)
[2025-02-21 08:37] VITALS: BP 135/61
[2025-02-21] MEDS: HYDROCORTISONE 2.5% CREAM 1 APPLIC TOPICAL ×2 (08:39→21:44)
[2025-02-21] MEDS: DICLOFENAC 1% TOPICAL GEL TOPICAL ×3 (08:48→22:01)
--- NOTE | 2025-02-21 11:48 | W.PN.HOSP.TC ---
Addendum entered and electronically signed by Les Falk MD 02/22/25 12:37:
Correction date should be 02/21/2025
Addendum entered and electronically signed by Les Falk MD 02/22/25 12:36:
Late addendum. Patient was seen and examined on 02/22/2024
General: Well Developed, Well Nourished, No Apparent Distress and Conversant, Sitting in chair
HEENT: NormoCephalic, Moist mucous membranes, Atraumatic, Nose Appears Normal and Ears Appear Normal
Respiratory: Clear and Non Labored Respirations; No Wheezes, Rales or Rhonchi
Cardiac: S1/S2 and Regular Rhythm; No Peripheral Edema
GI: Soft, Non Tender, Non Distended and Normal Bowel Sounds; No Organomegaly
Rectal: Deferred by Provider
Genito-urinary: Deferred by me
Musculoskeletal: No Clubbing, No Cyanosis and No Edema
Skin: Warm and macular/erythematous rash on back
Neuro: Awake, AO x 3 and Nonfocal/grossly intact
Psych: Calm
Original Note:
Today's Communication/Plan
-
Antibiotic per infectious disease
Monitor WBC
Blood cultures remain negative
Hydrocortisone cream
Await transfer
Assessment / Plan
Assessment / Plan
#Diffuse body ache concern for polymyalgia rheumatica flareup versus infectious
#Severe leukocytosis concern for infectious flareup
-Continue IV cefepime. Dose adjusted to every 6 hours per creatinine clearance per ID
- Blood culture and remains negative. Patient remains afebrile. Influenza and COVID-negative. MRSA screen pending. Chest x-ray No acute disease of the chest. No pleural effusion or pneumothorax. No urinary symptoms.
-Awaiting transfer to [facility] for further management
- Await further ID input
# History of laminectomy lumbar region status post complication with wound dehiscence status post infection status post wound VAC placement and removal
- Continue with IV cefepime as above.
- Wound still open to mildly open. Not able to express any purulent drainage.
- Unable to start any anti-inflammatory medication regimen especially steroids in the setting of polymyalgia rheumatica flareup as patient remains with wound not completely close and concern for wound dehiscence which better be managed at patient
primary surgical site Hospital.
- Patient follows closely with orthopedic, plastic surgery and infectious disease at [facility].
#Macular erythematous rash on the back chronic
- Unclear if due to allergies versus pressure versus medication
- Continue with hydrocortisone cream twice daily. Unclear if related to antibiotics as looks like ceftriaxone causes rash.
#Primary sclerosing cholangitis
-Patient follows with [facility] marketing automation manager
-AST ALT improvement. Further management once transferred to [facility].
#hypertension
- continue amlodipine and metoprolol
#hyperlipidemia
- continue ezetimibe and rosuvastatin
#CAD status post stents
#nonischemic cardiomyopathy
- continue aspirin
#PAD
#BPH
- continue alfuzosin and finasteride
#GERD
- continue famotidine and omeprazole
Code status: full code
DVT prophylaxis: lovenox sq
Anticipated Discharge: > 48 hours
Subjective/Interval History
-
Date of Service: February 21, 2025
States remains with joint pains
Remains afebrile
States of rash on the back which has been chronic.
States some mild pruritus but not significant.
Objective Data
-
Labs:
Laboratory Results
02/21/25 02/21/25
04:42 06:28
WBC 14.5 H
Hgb 11.5 L
Hct 36.1 L
Plt Count 362
Sodium 139
Potassium 4.1
Chloride 106
Carbon Dioxide 24
BUN 33 H
Creatinine 1.0
Glucose 110 H
Calcium 9.7
Total Bilirubin 0.9
AST 63 H
ALT 70 H
Alkaline Phosphatase 228 H
Vital Signs:
Vital Signs
Temp Pulse Resp BP Pulse Ox
97.5 F 83 19 135/61 100
02/21/25 08:37 02/21/25 08:37 02/21/25 08:37 02/21/25 08:37 02/21/25 08:37
I&O
02/20/25 02/21/25 02/22/25
06:59 06:59 06:59
Intake Total 960 / 960
Output Total 150 / 150 1475 / 1475
Balance -150 / -150 -515 / -515
[2025-02-21] MEDS: CATHFLO/ACTIVASE 2 MG INTRACATH (12:15)
[2025-02-21 12:48] VITALS: BP 123/68; BP 137/51; PULSE 57; O2SAT 100
--- NOTE | 2025-02-21 13:30 | W.PN.ID1 ---
Date of Service
Date of Service: February 21, 2025
Today's Communication
Continue cefepime.
Assessment / Plan
Surgical site infection - laminectomy
due to Pseudomonas
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
Possible PMR flare
Pruritic rash
- Suspect rash due to cefepime. Pt with h/o rash on ceftriaxone.
I offered to replace cefepime with meropenem. Pt declines change of abx.
Itching is tolerable with topical steroid.
He refuses Benadryl.
- L sided PICC line in place
- continue cefepime dose adjusted for current renal function to 1 g q6 hrs; duration is planned through feb
- blood cultures neg to date
- pain management per hospitalist
- awaiting transfer to [facility]
Chief Complaint
-: Other (Wound dehiscence)
Subjective / Review of Systems
c/o pruriti rash x 1 week, improving with topical steroid.
Vital Signs / Physical Exam
Vital Signs
Vital Signs
Temp Pulse Resp BP Pulse Ox
97.5 F 83 19 135/61 100
02/21/25 08:37 02/21/25 08:37 02/21/25 08:37 02/21/25 08:37 02/21/25 08:37
Physical Exam
Constitutional: No Acute Distress
Eyes: No Conjunctival Hemorrhage and Sclera Anicteric
Cardiovascular: Regular Rate and S1/S2
Pulmonary: Clear
Gastrointestinal: Soft, Non Tender, Non Distended and Normal Bowel Sounds
Genito-Urinary: Negative CVA Tenderness
Skin: Rash (maculopapular rash on upper chest, shoulders, entire posterior torso)
Wound: Other (lumbar small wound dry with light yellow fibrin)
Neurological: AO x 3
Lines: PICC (LUE no erythema)
Objective Data
Lab Data
Lab Results
02/21/25 04:42
02/21/25 06:28
Estimated Creat Clear 64 ml/min 02/21/25 06:28
Lactic Acid Cancelled 02/19/25 17:00
Total Bilirubin 0.9 mg/dl (0.2-1.3) 02/21/25 06:28
AST 63 U/L (17-59) H 02/21/25 06:28
ALT 70 U/L (0-50) H 02/21/25 06:28
Alkaline Phosphatase 228 U/L (38-126) H 02/21/25 06:28
Most recent labs reviewed.
Micro Results:
02/19/25 13:18 Blood Culture - Preliminary
Blood/Venous No Growth in 48 hours- Final report to follow
02/19/25 13:18 Blood Culture - Preliminary
Blood/Venous No Growth in 48 hours- Final report to follow
02/20/25 17:02 MRSA Screen - Pending
Nose
02/19/25 14:53 Influenza Types A & B (MYKEL) - Final
Nasal Swab Negative for Influenza A & B, NAAT
Negative results must be combined with clinical observations
and patient history.
Nucleic Acid Amplification test (NAAT)performed on the
[employer] platform.
--- NOTE | 2025-02-21 13:55 | VATNOTE ---
order for cathflo activase for left PICC line that has negative blood return. 2mg cathflo activase instilled at 1230. Rechecked at 1345. Brisk blood return obtained. 5mls blood and cathflo withdrawn and discarded. PICC then flushed with 10mls
NSS. Primary care RN made aware.
[2025-02-21 16:12] VITALS: BP 157/64
[2025-02-21] MEDS: SINGULAIR 10 MG PO (18:14)
[2025-02-21] MEDS: LOVENOX 40 MG SC (18:14)
[2025-02-21] MEDS: CRESTOR 40 MG PO (21:39)
[2025-02-21] MEDS: ASPIR LOW (ENTERIC COATED) 81 MG PO (21:39)
[2025-02-21] MEDS: DILAUDID 2 MG PO (21:42)
[2025-02-21 22:57] VITALS: BP 120/57
[2025-02-22] MEDS: MAXIPIME 1000 MG IV ×5 (00:36→23:57)
[2025-02-22] MEDS: STERILE WATER FOR INJECTION 10 ML IV ×5 (00:36→23:56)
[2025-02-22] MEDS: ULTRAM 50 MG PO ×4 (00:47→21:09)
[2025-02-22 06:44] LABS: Hematocrit 32.9 % (39.0-52.0); Hemoglobin 10.4 g/dL (13.0-18.0); Mean Corp Hgb Conc. 31.6 g/dL (33.0-37.0); Mean Corpuscular Volume 88.9 fL (80.0-94.0); Platelet Count 353 10^3/uL (130-400); Red Cell Dist. Width 13.2 % (11.5-14.5)
[2025-02-22 06:50] LABS: ALT (SGPT) 64 U/L (0-50); AST (SGOT) 56 U/L (17-59); Albumin 3.8 g/dl (3.5-5.0); Alkaline Phosphatase 182 U/L (38-126); Blood Urea Nitrogen 35 mg/dl (9-20); Calcium 9.3 mg/dl (8.4-10.2); Carbon Dioxide 23 mmol/L (22-30); Chloride 108 mmol/L (98-107); Estimated Creatinine Clearance 71 ml/min; Glucose 114 mg/dl (70-99); Potassium 4.0 mmol/L (3.5-5.1); Sodium 138 mmol/L (135-145); Total Protein 6.6 g/dl (6.3-8.2); eGFR > 60.00
[2025-02-22] MEDS: ADVAIR HFA 45/21 MCG INHALER 2 PUFF INH ×2 (07:48→19:27)
[2025-02-22 08:13] VITALS: BP 116/57
[2025-02-22] MEDS: SENOKOT-S 1 TABLET PO ×2 (08:42→21:09)
[2025-02-22] MEDS: PROTONIX 40 MG PO (08:42)
[2025-02-22] MEDS: MIRALAX 17 GRAMS PO (08:42)
[2025-02-22] MEDS: FLOMAX 0.4 MG PO (08:42)
[2025-02-22] MEDS: MAGNESIUM OXIDE 400 MG PO (08:43)
[2025-02-22] MEDS: PEPCID 20 MG PO (08:43)
[2025-02-22] MEDS: PROSCAR 5 MG PO (08:43)
[2025-02-22] MEDS: NORVASC 5 MG PO (08:44)
[2025-02-22] MEDS: ZETIA 10 MG PO (08:44)
[2025-02-22] MEDS: DICLOFENAC 1% TOPICAL GEL 4 GRAM TOPICAL ×2 (08:50→16:08)
[2025-02-22] MEDS: HYDROCORTISONE 2.5% CREAM TOPICAL (08:50)
[2025-02-22] MEDS: COLCHICINE 0.6 MG PO ×2 (08:54→21:10)
[2025-02-22] MEDS: FLORASTOR 250 MG PO (08:54)
[2025-02-22] MEDS: VITAMIN B-6 50 MG PO (08:54)
[2025-02-22] MEDS: TOPROL XL PO (09:56)
[2025-02-22 09:57] VITALS: BP 140/69
--- NOTE | 2025-02-22 10:02 | W.PN.ID1 ---
Date of Service
Date of Service: February 22, 2025
Today's Communication
Continue cefepime.
Assessment / Plan
Surgical site infection - laminectomy
due to Pseudomonas
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
Possible PMR flare
Pruritic rash - stable
- Suspect rash due to cefepime. Pt with h/o rash on ceftriaxone.
Pt declined offer to replace cefepime with meropenem.
Continue supportive care. Itching is tolerable with topical steroid.
- L sided PICC line in place
- continue cefepime dose adjusted for current renal function to 1 g q6 hrs; duration is planned through feb
- blood cultures neg to date
- pain management per hospitalist
- awaiting transfer to [facility]
Chief Complaint
-: Other (Wound dehiscence)
Subjective / Review of Systems
No new complaints. Itching tolerable.
Vital Signs / Physical Exam
Vital Signs
Vital Signs
Temp Pulse Resp BP Pulse Ox
97.8 F 50 20 140/69 100
02/22/25 08:13 02/22/25 09:57 02/22/25 08:13 02/22/25 09:57 02/22/25 08:13
Physical Exam
Constitutional: No Acute Distress
Eyes: No Conjunctival Hemorrhage and Sclera Anicteric
Cardiovascular: Regular Rate and S1/S2
Pulmonary: Clear
Gastrointestinal: Soft, Non Tender, Non Distended and Normal Bowel Sounds
Genito-Urinary: Negative CVA Tenderness
Skin: Rash (maculopapular rash on upper chest, shoulders, entire posterior torso)
Wound: Other (lumbar small wound dry with light yellow fibrin)
Neurological: AO x 3
Lines: PICC (LUE no erythema)
Objective Data
Lab Data
Lab Results
02/22/25 06:18
02/22/25 06:18
Estimated Creat Clear 71 ml/min 02/22/25 06:18
Lactic Acid Cancelled 02/19/25 17:00
Total Bilirubin 0.7 mg/dl (0.2-1.3) 02/22/25 06:18
AST 56 U/L (17-59) 02/22/25 06:18
ALT 64 U/L (0-50) H 02/22/25 06:18
Alkaline Phosphatase 182 U/L (38-126) H 02/22/25 06:18
Most recent labs reviewed.
Micro Results:
02/20/25 17:02 MRSA Screen - Final
Nose No Methicillin Resistant Staphylococcus aureus isolated.
02/19/25 13:18 Blood Culture - Preliminary
Blood/Venous No Growth in 48 hours- Final report to follow
02/19/25 13:18 Blood Culture - Preliminary
Blood/Venous No Growth in 48 hours- Final report to follow
02/19/25 14:53 Influenza Types A & B (MYKEL) - Final
Nasal Swab Negative for Influenza A & B, NAAT
Negative results must be combined with clinical observations
and patient history.
Nucleic Acid Amplification test (NAAT)performed on the
[employer] platform.
--- NOTE | 2025-02-22 10:10 | CM ---
Pt is awaiting transfer to [facility] pending bed availability.
--- NOTE | 2025-02-22 12:32 | W.PN.HOSP.TC ---
Today's Communication/Plan
-
WBC downtrending
Continue with cefepime
Hydrocortisone foot cream
Await transfer to [facility]
LFTs improvement
Assessment / Plan
Assessment / Plan
#Diffuse body ache concern for polymyalgia rheumatica flareup versus infectious
#Severe leukocytosis concern for infectious flareup
-Continue IV cefepime. Dose adjusted to every 6 hours per creatinine clearance per ID
- Blood culture and remains negative. Patient remains afebrile. Influenza and COVID-negative. MRSA screen negative. Chest x-ray No acute disease of the chest. No pleural effusion or pneumothorax. No urinary symptoms.
-Awaiting transfer to [facility] for further management
- WBC downtrending.
# History of laminectomy lumbar region status post complication with wound dehiscence status post infection status post wound VAC placement and removal and suspected osteomyelitis
- Continue with IV cefepime as above.
- Wound still open to mildly open. Not able to express any purulent drainage.
- Unable to start any anti-inflammatory medication regimen especially steroids in the setting of polymyalgia rheumatica flareup as patient remains with wound not completely close and concern for wound dehiscence which better be managed at patient
primary surgical site Hospital.
- Patient follows closely with orthopedic, plastic surgery and infectious disease at [facility].
#Macular erythematous rash on the back chronic
- Unclear if due to allergies versus pressure versus medication
- Continue with hydrocortisone cream twice daily. Unclear if related to antibiotics as looks like ceftriaxone causes rash.
#Primary sclerosing cholangitis
-Patient follows with [facility] management architect
-AST ALT downtrending.
#hypertension
- continue amlodipine and metoprolol
#hyperlipidemia
- continue ezetimibe and rosuvastatin
#CAD status post stents
#nonischemic cardiomyopathy
- continue aspirin
#PAD
#BPH
- continue alfuzosin and finasteride
#GERD
- continue famotidine and omeprazole
Code status: full code
DVT prophylaxis: lovenox sq
Awaiting transfer to [facility].
Anticipated Discharge: Within 24 hours
Subjective/Interval History
-
Date of Service: February 22, 2025
Denies any itching on the back
Objective Data
-
Labs:
Laboratory Results
02/22/25
06:18
WBC 13.8 H
Hgb 10.4 L
Hct 32.9 L
Plt Count 353
Sodium 138
Potassium 4.0
Chloride 108 H
Carbon Dioxide 23
BUN 35 H
Creatinine 0.9
Glucose 114 H
Calcium 9.3
Total Bilirubin 0.7
AST 56
ALT 64 H
Alkaline Phosphatase 182 H
Vital Signs:
Vital Signs
Temp Pulse Resp BP Pulse Ox
97.8 F 50 20 140/69 100
02/22/25 08:13 02/22/25 09:57 02/22/25 08:13 02/22/25 09:57 02/22/25 08:13
I&O
02/21/25 02/22/25 02/23/25
06:59 06:59 06:59
Intake Total 960 / 960 1800 / 1800
Output Total 1475 / 1475 775 / 775
Balance -515 / -515 1025 / 1025
Physical Exam
-
General: Well Developed and No Apparent Distress
HEENT: Normocephalic, Atraumatic and Moist Mucous Membranes
Respiratory: Clear to Auscultation
Cardiac: Regular Rhythm and S1/S2; Negative Murmur, Rub or Gallop
GI: Soft, Nontender, Nondistended and Normal Bowel Sounds; Negative Organomegaly
Rectal: Deferred by Provider
Musculoskeletal: No Clubbing, No Cyanosis and No Edema
Skin: Warm and Rash
Neuro: Awake and Nonfocal/Grossly Intact
Psych: Calm
[2025-02-22 16:03] VITALS: BP 114/58
[2025-02-22] MEDS: SINGULAIR 10 MG PO (17:24)
[2025-02-22] MEDS: LOVENOX 40 MG SC (17:24)
[2025-02-22] MEDS: ASPIR LOW (ENTERIC COATED) 81 MG PO (21:08)
[2025-02-22] MEDS: CRESTOR 40 MG PO (21:09)
[2025-02-22] MEDS: HYDROCORTISONE 2.5% CREAM 1 APPLIC TOPICAL (21:10)
[2025-02-22] MEDS: DICLOFENAC 1% TOPICAL GEL TOPICAL (21:11)
[2025-02-22 23:00] VITALS: BP 113/51
--- NOTE | 2025-02-22 23:14 | PTCARENOTE ---
Oral care was not performed on patient because he stated that it was his preference to brush his teeth in the morning.
[2025-02-23] MEDS: ULTRAM 50 MG PO (03:03)
[2025-02-23] MEDS: STERILE WATER FOR INJECTION 10 ML IV ×4 (05:54→23:59)
[2025-02-23] MEDS: MAXIPIME 1000 MG IV ×4 (05:54→23:58)
[2025-02-23 07:30] VITALS: BP 110/52
[2025-02-23] MEDS: ADVAIR HFA 45/21 MCG INHALER 2 PUFF INH ×2 (07:40→20:01)
[2025-02-23] MEDS: TOPROL XL PO (07:40)
[2025-02-23] MEDS: MAGNESIUM OXIDE 400 MG PO (07:46)
[2025-02-23] MEDS: SENOKOT-S 1 TABLET PO ×2 (07:46→20:30)
[2025-02-23] MEDS: ZETIA 10 MG PO (07:46)
[2025-02-23] MEDS: PROSCAR 5 MG PO (07:46)
[2025-02-23] MEDS: VITAMIN B-6 50 MG PO (07:46)
[2025-02-23] MEDS: COLCHICINE 0.6 MG PO ×2 (07:46→20:30)
[2025-02-23] MEDS: PEPCID 20 MG PO (07:46)
[2025-02-23] MEDS: FLOMAX 0.4 MG PO (07:46)
[2025-02-23] MEDS: FLORASTOR 250 MG PO (07:46)
[2025-02-23] MEDS: PROTONIX 40 MG PO (07:46)
[2025-02-23] MEDS: NORVASC 5 MG PO (07:46)
[2025-02-23] MEDS: DICLOFENAC 1% TOPICAL GEL 4 GRAM TOPICAL ×3 (07:47→21:08)
[2025-02-23] MEDS: MIRALAX 17 GRAMS PO (07:47)
[2025-02-23] MEDS: HYDROCORTISONE 2.5% CREAM 1 APPLIC TOPICAL (07:48)
[2025-02-23] MEDS: LASIX 20 MG PO (07:50)
--- NOTE | 2025-02-23 09:36 | W.PN.ID1 ---
Date of Service
Date of Service: February 23, 2025
Today's Communication
continue cefepime
Assessment / Plan
Surgical site infection - laminectomy
due to Pseudomonas
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
Possible PMR flare
Pruritic rash - stable
- Suspect rash due to cefepime. Pt with h/o rash on ceftriaxone.
Pt declined offer to replace cefepime with meropenem.
Continue supportive care. Itching is tolerable with topical steroid.
- L sided PICC line in place
- continue cefepime dose adjusted for current renal function to 1 g q6 hrs; duration is planned through feb
- blood cultures neg to date
- pain management per hospitalist
- awaiting transfer to [facility]
Chief Complaint
-: Other (Wound dehiscence)
Subjective / Review of Systems
remains afebrile
bp stable
Vital Signs / Physical Exam
Vital Signs
Vital Signs
Temp Pulse Resp BP Pulse Ox
97.8 F 80 16 110/52 98
02/23/25 07:30 02/23/25 07:44 02/23/25 07:44 02/23/25 07:30 02/23/25 07:44
Physical Exam
Constitutional: No Acute Distress
Cardiovascular: Regular Rate and S1/S2; Negative Murmur or Rub
Pulmonary: Clear and Symmetric; Negative Wheezes or Rales
Gastrointestinal: Soft, Non Tender, Non Distended and Normal Bowel Sounds
Skin: Warm, Dry and Rash (few scattered macules on the shoulders); Negative Jaundice
Wound: Other (similar to last week, surgical site about 3 cm long with slough in the base of the wound)
Objective Data
Lab Data
Lab Results
02/22/25 06:18
02/22/25 06:18
Estimated Creat Clear 71 ml/min 02/22/25 06:18
Lactic Acid Cancelled 02/19/25 17:00
Total Bilirubin 0.7 mg/dl (0.2-1.3) 02/22/25 06:18
AST 56 U/L (17-59) 02/22/25 06:18
ALT 64 U/L (0-50) H 02/22/25 06:18
Alkaline Phosphatase 182 U/L (38-126) H 02/22/25 06:18
Most recent labs reviewed.
Micro Results:
02/19/25 13:18 Blood Culture - Preliminary
Blood/Venous No Growth in 72 hours- Final report to follow
02/19/25 13:18 Blood Culture - Preliminary
Blood/Venous No Growth in 72 hours- Final report to follow
02/20/25 17:02 MRSA Screen - Final
Nose No Methicillin Resistant Staphylococcus aureus isolated.
02/19/25 14:53 Influenza Types A & B (MYKEL) - Final
Nasal Swab Negative for Influenza A & B, NAAT
Negative results must be combined with clinical observations
and patient history.
Nucleic Acid Amplification test (NAAT)performed on the
[employer] platform.
--- NOTE | 2025-02-23 12:22 | CM ---
Patient chart reviewed
awaiting transfer to [facility]
PLAN: Transfer to [facility] once bed available
[2025-02-23 15:00] VITALS: BP 142/58
[2025-02-23 15:07] VITALS: BP 142/58; PULSE 51; O2SAT 99
[2025-02-23] MEDS: MOTRIN 800 MG PO (15:20)
--- NOTE | 2025-02-23 15:31 | W.PN.HOSP.TC ---
Today's Communication/Plan
-
Await transfer
Assessment / Plan
Assessment / Plan
Gen-AAOx3, NAD
HEENT-NC, AT, anicteric, clear oral mm
Neck-supple
CV-reg, no M, +S1/S2
Lungs-clear B/L
Abd-soft, NT, ND
Ext-no edema
Musculoskeletal-no cyanosis, clubbing
Skin-warm and dry
Neuro-grossly non-focal
Psych-calm, cooperative
Pseudomonas surgical site infection of laminectomy -continue IV cefepime per infectious disease.
Await transfer to [facility].
Presumed PMR flare -complaining of bilateral shoulder and hip pain. Check inflammatory markers.
Will hold off on steroids for now given acute infection and use NSAIDs. 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
History of laminectomy lumbar region status post complication with wound dehiscence status post infection status post wound VAC placement and removal and suspected osteomyelitis
- Continue with IV cefepime as above.
- Wound still open to mildly open. Not able to express any purulent drainage.
- Unable to start any anti-inflammatory medication regimen especially steroids in the setting of polymyalgia rheumatica flareup as patient remains with wound not completely close and concern for wound dehiscence which better be managed at patient
primary surgical site Hospital.
- Patient follows closely with orthopedic, plastic surgery and infectious disease at [facility].
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
- Unclear if due to allergies versus pressure versus medication
- Continue with hydrocortisone cream twice daily. Unclear if related to antibiotics as looks like ceftriaxone causes rash.
Primary sclerosing cholangitis
-Patient follows with [facility] supervisor maintenance
-AST ALT downtrending.
Essential hypertension
- continue amlodipine and metoprolol
hyperlipidemia
- continue ezetimibe and rosuvastatin
CAD status post stents
nonischemic cardiomyopathy
- continue aspirin
PAD
BPH
- continue alfuzosin and finasteride
Chronic normocytic anemia -suspect due to chronic inflammation. Hemoglobin stable.
GERD
- continue famotidine and omeprazole
Full code
updated at the bedside.
Anticipated Discharge: Within 24 hours
Subjective/Interval History
-
Date of Service: February 23, 2025
Patient seen and examined, complaining of bilateral hip and shoulder pain.
Objective Data
-
Vital Signs:
Vital Signs
Temp Pulse Resp BP Pulse Ox
97.6 F 57 16 142/58 99
02/23/25 15:00 02/23/25 15:00 02/23/25 15:00 02/23/25 15:00 02/23/25 15:00
I&O
02/22/25 02/23/25 02/24/25
06:59 06:59 06:59
Intake Total 1800 / 1800 1200 / 1200
Output Total 775 / 775 450 / 450
Balance 1025 / 1025 750 / 750
Review of Systems
-
History Source: Patient
All other systems: Reviewed and negative
[2025-02-23] MEDS: DULCOLAX 10 MG PO (16:18)
[2025-02-23] MEDS: LOVENOX 40 MG SC (18:43)
[2025-02-23] MEDS: SINGULAIR 10 MG PO (18:45)
[2025-02-23] MEDS: HYDROCORTISONE 2.5% CREAM TOPICAL (20:34)
[2025-02-23] MEDS: CRESTOR 40 MG PO (21:07)
[2025-02-23] MEDS: ASPIR LOW (ENTERIC COATED) 81 MG PO (21:07)
[2025-02-23 23:00] VITALS: BP 114/58
[2025-02-24 05:04] LABS: Hematocrit 32.9 % (39.0-52.0); Hemoglobin 10.5 g/dL (13.0-18.0); Mean Corp Hgb Conc. 31.9 g/dL (33.0-37.0); Mean Corpuscular Volume 88.4 fL (80.0-94.0); Nucleated Red Blood Cells % 0 % (-); Platelet Count 363 10^3/uL (130-400); Red Cell Dist. Width 13.3 % (11.5-14.5)
[2025-02-24 05:36] LABS: ALT (SGPT) 46 U/L (0-50); AST (SGOT) 38 U/L (17-59); Albumin 3.8 g/dl (3.5-5.0); Alkaline Phosphatase 166 U/L (38-126); Blood Urea Nitrogen 38 mg/dl (9-20); Calcium 9.6 mg/dl (8.4-10.2); Carbon Dioxide 25 mmol/L (22-30); Chloride 104 mmol/L (98-107); Estimated Creatinine Clearance 53 ml/min; Glucose 113 mg/dl (70-99); Potassium 3.9 mmol/L (3.5-5.1); Sodium 136 mmol/L (135-145); Total Protein 6.7 g/dl (6.3-8.2); eGFR > 60.00
[2025-02-24 05:41] LABS: C-Reactive Protein 33.80 mg/L (0.0-10.00)
[2025-02-24] MEDS: MAXIPIME 1000 MG IV ×4 (05:51→23:31)
[2025-02-24] MEDS: STERILE WATER FOR INJECTION 10 ML IV ×4 (05:51→23:31)
[2025-02-24] MEDS: TYLENOL 650 MG PO (06:06)
[2025-02-24 07:20] VITALS: BP 129/50
[2025-02-24] MEDS: MAGNESIUM OXIDE 400 MG PO (07:58)
[2025-02-24] MEDS: VITAMIN B-6 50 MG PO (07:58)
[2025-02-24] MEDS: COLCHICINE 0.6 MG PO ×2 (07:58→19:52)
[2025-02-24] MEDS: PROTONIX 40 MG PO (07:58)
[2025-02-24] MEDS: FLORASTOR 250 MG PO (07:59)
[2025-02-24] MEDS: TOPROL XL 25 MG PO (07:59)
[2025-02-24] MEDS: PROSCAR 5 MG PO (07:59)
[2025-02-24] MEDS: PEPCID 20 MG PO (07:59)
[2025-02-24] MEDS: SENOKOT-S 1 TABLET PO ×2 (07:59→19:52)
[2025-02-24] MEDS: ZETIA 10 MG PO (07:59)
[2025-02-24] MEDS: MIRALAX 17 GRAMS PO (08:00)
[2025-02-24] MEDS: FLOMAX 0.4 MG PO (08:00)
[2025-02-24] MEDS: NORVASC 5 MG PO (08:00)
[2025-02-24] MEDS: DICLOFENAC 1% TOPICAL GEL 4 GRAM TOPICAL ×3 (08:01→21:14)
[2025-02-24] MEDS: HYDROCORTISONE 2.5% CREAM 1 APPLIC TOPICAL (08:02)
[2025-02-24] MEDS: ADVAIR HFA 45/21 MCG INHALER 2 PUFF INH ×2 (08:18→19:19)
--- NOTE | 2025-02-24 09:55 | CM ---
Patient chart reviewed
awaiting transfer to [facility]
PLAN: Transfer to [facility] once bed available
--- NOTE | 2025-02-24 11:25 | W.PN.ID1 ---
Date of Service
Date of Service: February 24, 2025
Today's Communication
continue cefepime
Assessment / Plan
Surgical site infection - laminectomy
due to Pseudomonas
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
Possible PMR flare
Pruritic rash - stable
- Suspect rash due to cefepime. Pt with h/o rash on ceftriaxone.
Pt declined offer to replace cefepime with meropenem.
Continue supportive care. Itching is tolerable with topical steroid.
- L sided PICC line in place
- continue cefepime dose adjusted for current renal function to 1 g q6 hrs; duration is planned through feb
- blood cultures neg to date
- pain management per hospitalist
- awaiting transfer to [facility]
Chief Complaint
-: Other (Wound dehiscence)
Subjective / Review of Systems
afebrile
bp stable
tolerating current therapies
Vital Signs / Physical Exam
Vital Signs
Vital Signs
Temp Pulse Resp BP Pulse Ox
98.2 F 85 16 129/50 100
02/24/25 07:20 02/24/25 08:22 02/24/25 08:22 02/24/25 07:20 02/24/25 08:22
Physical Exam
Constitutional: No Acute Distress
Cardiovascular: Regular Rate and S1/S2; Negative Murmur or Rub
Pulmonary: Clear and Symmetric; Negative Wheezes or Rales
Gastrointestinal: Soft, Non Tender, Non Distended and Normal Bowel Sounds
Skin: Warm, Dry and Rash (back shoulders generalized maculopapular rash improved from previous with topical steroid); Negative Jaundice
Wound: Other (surgical site unchanged with small area of dehiscence and slough in the base)
Lines: PICC
Objective Data
Lab Data
Lab Results
02/24/25 04:18
02/24/25 04:18
ESR 67 mm/hour (0-20) H 02/24/25 04:18
Estimated Creat Clear 53 ml/min 02/24/25 04:18
Lactic Acid Cancelled 02/19/25 17:00
Total Bilirubin 0.8 mg/dl (0.2-1.3) 02/24/25 04:18
AST 38 U/L (17-59) 02/24/25 04:18
ALT 46 U/L (0-50) 02/24/25 04:18
Alkaline Phosphatase 166 U/L (38-126) H 02/24/25 04:18
C-Reactive Protein 33.80 mg/L (0.0-10.00) H 02/24/25 04:18
Most recent labs reviewed.
Micro Results:
02/19/25 13:18 Blood Culture - Preliminary
Blood/Venous No Growth in 4 days- Final report to follow
02/19/25 13:18 Blood Culture - Preliminary
Blood/Venous No Growth in 4 days- Final report to follow
02/20/25 17:02 MRSA Screen - Final
Nose No Methicillin Resistant Staphylococcus aureus isolated.
02/19/25 14:53 Influenza Types A & B (MYKEL) - Final
Nasal Swab Negative for Influenza A & B, NAAT
Negative results must be combined with clinical observations
and patient history.
Nucleic Acid Amplification test (NAAT)performed on the
[employer] platform.
--- NOTE | 2025-02-24 12:12 | W.PN.HOSP.TC ---
Today's Communication/Plan
-
Await transfer
Assessment / Plan
Assessment / Plan
Gen-AAOx3, NAD
HEENT-NC, AT, anicteric, clear oral mm
Neck-supple
CV-reg, no M, +S1/S2
Lungs-clear B/L
Abd-soft, NT, ND
Ext-no edema
Musculoskeletal-no cyanosis, clubbing
Skin-warm and dry
Neuro-grossly non-focal
Psych-calm, cooperative
Pseudomonas surgical site infection of laminectomy -continue IV cefepime per infectious disease. Afebrile, WBC trending down.
Await transfer to [facility].
Presumed PMR flare -complaining of bilateral shoulder and hip pain. ESR 67, CRP 33.8.
Will hold off on steroids for now given acute infection and use NSAIDs. 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
History of laminectomy lumbar region status post complication with wound dehiscence status post infection status post wound VAC placement and removal and suspected osteomyelitis
- Continue with IV cefepime as above.
- Wound still open to mildly open. Not able to express any purulent drainage.
- Unable to start any anti-inflammatory medication regimen especially steroids in the setting of polymyalgia rheumatica flareup as patient remains with wound not completely close and concern for wound dehiscence which better be managed at patient
primary surgical site Hospital.
- Patient follows closely with orthopedic, plastic surgery and infectious disease at [facility].
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
- Unclear if due to allergies versus pressure versus medication
- Continue with hydrocortisone cream twice daily. Unclear if related to antibiotics as looks like ceftriaxone causes rash.
Primary sclerosing cholangitis
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
-AST ALT downtrending.
Essential hypertension
- continue amlodipine and metoprolol
hyperlipidemia
- continue ezetimibe and rosuvastatin
CAD status post stents
nonischemic cardiomyopathy
- continue aspirin
PAD
BPH
- continue alfuzosin and finasteride
Chronic normocytic anemia -suspect due to chronic inflammation. Hemoglobin stable.
GERD
- continue famotidine and omeprazole
Full code
I called [facility] transfer center today for an update, still no bed available. He remains on the list for transfer.
Anticipated Discharge: Within 24 hours
Subjective/Interval History
-
Date of Service: February 24, 2025
Patient seen and examined. Still with some aches in the shoulders and hips, no new complaints.
Objective Data
-
Labs:
Laboratory Results
02/24/25
04:18
WBC 11.7 H
Hgb 10.5 L
Hct 32.9 L
Plt Count 363
Sodium 136
Potassium 3.9
Chloride 104
Carbon Dioxide 25
BUN 38 H
Creatinine 1.2
Glucose 113 H
Calcium 9.6
Total Bilirubin 0.8
AST 38
ALT 46
Alkaline Phosphatase 166 H
Vital Signs:
Vital Signs
Temp Pulse Resp BP Pulse Ox
98.2 F 85 16 129/50 96
02/24/25 07:20 02/24/25 08:22 02/24/25 08:22 02/24/25 07:20 02/24/25 11:00
I&O
02/23/25 02/24/25 02/25/25
06:59 06:59 06:59
Intake Total 1200 / 1200 1200 / 1200
Output Total 450 / 450 300 / 300
Balance 750 / 750 900 / 900
Review of Systems
-
History Source: Patient
All other systems: Reviewed and negative
[2025-02-24 13:33] VITALS: BMI 25.5
[2025-02-24 15:00] VITALS: BP 115/56
[2025-02-24] MEDS: MOTRIN 800 MG PO (16:54)
[2025-02-24] MEDS: LOVENOX 40 MG SC (17:28)
[2025-02-24] MEDS: SINGULAIR 10 MG PO (17:28)
[2025-02-24] MEDS: HYDROCORTISONE 2.5% CREAM TOPICAL (19:53)
[2025-02-24] MEDS: ASPIR LOW (ENTERIC COATED) 81 MG PO (21:13)
[2025-02-24] MEDS: CRESTOR 40 MG PO (21:13)
[2025-02-24 23:22] VITALS: BP 122/51
[2025-02-25] MEDS: MOTRIN 800 MG PO (01:56)
[2025-02-25] MEDS: TYLENOL 650 MG PO ×3 (04:22→21:25)
[2025-02-25 04:25] LABS: Hematocrit 32.0 % (39.0-52.0); Hemoglobin 10.1 g/dL (13.0-18.0); Mean Corp Hgb Conc. 31.6 g/dL (33.0-37.0); Mean Corpuscular Volume 87.7 fL (80.0-94.0); Nucleated Red Blood Cells % 0 % (-); Platelet Count 359 10^3/uL (130-400); Red Cell Dist. Width 13.2 % (11.5-14.5)
[2025-02-25 04:51] LABS: ALT (SGPT) 45 U/L (0-50); AST (SGOT) 45 U/L (17-59); Albumin 3.6 g/dl (3.5-5.0); Alkaline Phosphatase 159 U/L (38-126); Blood Urea Nitrogen 35 mg/dl (9-20); Calcium 9.4 mg/dl (8.4-10.2); Carbon Dioxide 25 mmol/L (22-30); Chloride 105 mmol/L (98-107); Estimated Creatinine Clearance 53 ml/min; Glucose 112 mg/dl (70-99); Potassium 4.2 mmol/L (3.5-5.1); Sodium 137 mmol/L (135-145); Total Protein 6.3 g/dl (6.3-8.2); eGFR > 60.00
[2025-02-25] MEDS: STERILE WATER FOR INJECTION 10 ML IV ×3 (05:35→17:35)
[2025-02-25] MEDS: MAXIPIME 1000 MG IV ×3 (05:36→17:35)
[2025-02-25 07:00] VITALS: BP 136/54
[2025-02-25] MEDS: ADVAIR HFA 45/21 MCG INHALER 2 PUFF INH ×2 (07:40→19:37)
[2025-02-25] MEDS: COLCHICINE 0.6 MG PO ×2 (08:23→21:22)
[2025-02-25] MEDS: FLORASTOR 250 MG PO (08:23)
[2025-02-25] MEDS: MIRALAX 17 GRAMS PO (08:24)
[2025-02-25] MEDS: MAGNESIUM OXIDE 400 MG PO (08:24)
[2025-02-25] MEDS: PEPCID 20 MG PO (08:24)
[2025-02-25] MEDS: TOPROL XL 25 MG PO (08:24)
[2025-02-25] MEDS: PROTONIX 40 MG PO (08:24)
[2025-02-25] MEDS: SENOKOT-S 1 TABLET PO ×2 (08:24→21:24)
[2025-02-25] MEDS: ZETIA 10 MG PO (08:24)
[2025-02-25] MEDS: NORVASC 5 MG PO (08:24)
[2025-02-25] MEDS: PROSCAR 5 MG PO (08:24)
[2025-02-25] MEDS: FLOMAX 0.4 MG PO (08:25)
[2025-02-25] MEDS: DICLOFENAC 1% TOPICAL GEL 4 GRAM TOPICAL ×3 (08:25→21:27)
[2025-02-25] MEDS: HYDROCORTISONE 2.5% CREAM TOPICAL ×2 (08:51→21:27)
[2025-02-25] MEDS: LASIX 20 MG PO (08:51)
[2025-02-25] MEDS: VITAMIN B-6 50 MG PO (09:03)
--- NOTE | 2025-02-25 09:09 | W.PN.HOSP.TC ---
Addendum entered and electronically signed by Gianluca Perez DO 02/25/25 12:35:
Lumbar surgical wound with yellow fibrin cover and local erythema. Small serous drainage. Sacral stage 3 pressure injury pink with yellow fibrin with sacral/buttocks stage 2 openings and macerated skin. R plantar great toe neuropathic dermal ulcer
vs callus. Heels blanchable red. +2 ankle edema
wound care consulted
Original Note:
Today's Communication/Plan
-
Await [facility] transfer
Assessment / Plan
Assessment / Plan
Gen-AAOx3, NAD
HEENT-NC, AT, anicteric, clear oral mm
Neck-supple
CV-reg, no M, +S1/S2
Lungs-clear B/L
Abd-soft, NT, ND
Ext-no edema
Musculoskeletal-no cyanosis, clubbing
Skin-warm and dry
Neuro-grossly non-focal
Psych-calm, cooperative
Pseudomonas surgical site infection of laminectomy -continue IV cefepime per infectious disease. Afebrile, WBC stable at 12k.
Await transfer to [facility].
Presumed PMR flare -complaining of bilateral shoulder and hip pain. ESR 67, CRP 33.8.
Will hold off on steroids for now given acute infection and use NSAIDs. 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
History of laminectomy lumbar region status post complication with wound dehiscence status post infection status post wound VAC placement and removal and suspected osteomyelitis
- Continue with IV cefepime as above.
- Wound still open to mildly open. Not able to express any purulent drainage.
- Unable to start any anti-inflammatory medication regimen especially steroids in the setting of polymyalgia rheumatica flareup as patient remains with wound not completely close and concern for wound dehiscence which better be managed at patient
primary surgical site Hospital.
- Patient follows closely with orthopedic, plastic surgery and infectious disease at [facility].
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
- Unclear if due to allergies versus pressure versus medication
- Continue with hydrocortisone cream twice daily. Unclear if related to antibiotics as looks like ceftriaxone causes rash.
Primary sclerosing cholangitis
-Patient follows with [facility] admitted attorneys
-AST ALT downtrending.
Essential hypertension
- continue amlodipine and metoprolol
hyperlipidemia
- continue ezetimibe and rosuvastatin
CAD status post stents
nonischemic cardiomyopathy
- continue aspirin
PAD
BPH
- continue alfuzosin and finasteride
Chronic normocytic anemia -suspect due to chronic inflammation. Hemoglobin stable.
GERD
- continue famotidine and omeprazole
Full code
I called [facility] transfer center 02/24 for an update, still no bed available. He remains on the list for transfer.
Anticipated Discharge: Within 24 hours
Subjective/Interval History
-
Date of Service: February 25, 2025
Patient seen and examined, no new complaints.
Objective Data
-
Labs:
Laboratory Results
02/25/25
04:03
WBC 12.0 H
Hgb 10.1 L
Hct 32.0 L
Plt Count 359
Sodium 137
Potassium 4.2
Chloride 105
Carbon Dioxide 25
BUN 35 H
Creatinine 1.2
Glucose 112 H
Calcium 9.4
Total Bilirubin 0.6
AST 45
ALT 45
Alkaline Phosphatase 159 H
Vital Signs:
Vital Signs
Temp Pulse Resp BP Pulse Ox
97.4 F 81 16 136/54 100
02/25/25 07:00 02/25/25 08:51 02/25/25 07:44 02/25/25 08:51 02/25/25 07:44
I&O
02/24/25 02/25/25 02/26/25
06:59 06:59 06:59
Intake Total 1200 / 1200 600 / 600
Output Total 300 / 300 650 / 650
Balance 900 / 900 -50 / -50
Review of Systems
-
History Source: Patient
All other systems: Reviewed and negative
--- NOTE | 2025-02-25 10:02 | CM ---
Addendum entered by Lovely Cerda 02/25/25 11:45:
Per Dr. Oropeza patient to return to [facility] for his continued skilled rehab/IV abx & follow up out-patient with specialists (see note)
Script given for IV antibiotic Cefepime 1gm IV Q6h, patient has L PICC, placed in chart
Referral entered in [facility] for [facility]
Called and asked her name of plastic surgeon
CM asked by ID to schedule appt with Dr. Luis Myers (plastics)
appointment made for SundayMarch 06 at 2:30pm at [address]
Updated
PLAN: Return to [facility], pending bed availability, CM will continue to follow
Original Note:
Patient seen at bedside
[facility]
PLAN: Awaiting bed for transfer to [facility]
--- NOTE | 2025-02-25 10:19 | W.PN.ID1 ---
Date of Service
Date of Service: February 25, 2025
Today's Communication
Patient was admitted for management of PMR flare which has been accomplished. The wound dehiscence has been under the care of his team at [facility] (plastics, orthopedics and infectious disease) is unchanged at this time and he will return to their care
after this hospitalization. Today I spoke with the nursing team of his ID doctor Dr Dakota Lee and left a message for him that he was admitted, I asked if he had further follow up or any plan for suppressive antibiotic and I was told neither was
planned in his notes. The nursing team indicated that they would leave a message that I had called for Dr Lee. At this point I recommend outpatient follow up with his surgical team - orthopedics and plastics. I have asked our major case detective to
schedule a follow up with plastics because he did not already have an appointment. He does have an orthopedics appointment 03/20 already scheduled. I reviewed these plans with Dr Perez, patient and his and all are in agreement, all
questions have been answered.
Assessment / Plan
Surgical site infection - laminectomy
due to Pseudomonas
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
Possible PMR flare
Pruritic rash - stable
- Suspect rash due to cefepime. Pt with h/o rash on ceftriaxone.
Pt declined offer to replace cefepime with meropenem.
Continue supportive care. Itching is tolerable with topical steroid.
- L sided PICC line in place
- continue cefepime dose adjusted for current renal function to 1 g q6 hrs; duration is planned through feb
- blood cultures neg to date
- pain management per hospitalist
Patient was admitted for management of PMR flare which has been accomplished. The wound dehiscence has been under the care of his team at [facility] (plastics, orthopedics and infectious disease) is unchanged at this time and he will return to their care
after this hospitalization. Today I spoke with the nursing team of his ID doctor Dr Dakota Lee and left a message for him that he was admitted, I asked if he had further follow up or any plan for suppressive antibiotic and I was told neither was
planned in his notes. The nursing team indicated that they would leave a message that I had called for Dr Lee. At this point I recommend outpatient follow up with his surgical team - orthopedics and plastics. I have asked our major case detective to
schedule a follow up with plastics because he did not already have an appointment. He does have an orthopedics appointment 03/20 already scheduled. I reviewed these plans with Dr Perez, patient and his and all are in agreement, all
questions have been answered.
Chief Complaint
-: Other (Wound dehiscence)
Subjective / Review of Systems
remains afebrile
bp stable
no events overnight
Vital Signs / Physical Exam
Vital Signs
Vital Signs
Temp Pulse Resp BP Pulse Ox
97.4 F 81 16 136/54 100
02/25/25 07:00 02/25/25 08:51 02/25/25 07:44 02/25/25 08:51 02/25/25 09:30
Physical Exam
Constitutional: No Acute Distress
Cardiovascular: Regular Rate and S1/S2; Negative Murmur or Rub
Pulmonary: Clear and Symmetric; Negative Wheezes or Rales
Gastrointestinal: Soft, Non Tender, Non Distended and Normal Bowel Sounds
Skin: Warm and Dry; Negative Rash or Jaundice
Objective Data
Lab Data
Lab Results
02/25/25 04:03
02/25/25 04:03
ESR 67 mm/hour (0-20) H 02/24/25 04:18
Estimated Creat Clear 53 ml/min 02/25/25 04:03
Lactic Acid Cancelled 02/19/25 17:00
Total Bilirubin 0.6 mg/dl (0.2-1.3) 02/25/25 04:03
AST 45 U/L (17-59) 02/25/25 04:03
ALT 45 U/L (0-50) 02/25/25 04:03
Alkaline Phosphatase 159 U/L (38-126) H 02/25/25 04:03
C-Reactive Protein 33.80 mg/L (0.0-10.00) H 02/24/25 04:18
Most recent labs reviewed.
Micro Results:
02/19/25 13:18 Blood Culture - Final
Blood/Venous No Growth - Final Report
02/19/25 13:18 Blood Culture - Final
Blood/Venous No Growth - Final Report
02/20/25 17:02 MRSA Screen - Final
Nose No Methicillin Resistant Staphylococcus aureus isolated.
02/19/25 14:53 Influenza Types A & B (MYKEL) - Final
Nasal Swab Negative for Influenza A & B, NAAT
Negative results must be combined with clinical observations
and patient history.
Nucleic Acid Amplification test (NAAT)performed on the
[employer] platform.
--- NOTE | 2025-02-25 11:23 | PN.CDI ---
CDI
- -
CDI:
Physician Documentation Request
Admit Date: 02/19/25 22:46
Dear Doctor Ana,
02/20 WOCN note states 'sacral stage 3 pressure injury pink with yellow fibrin with sacral/buttocks stage 2 opening and macerated skin'
Physician documentation of the type and location of wounds is required for compliant documentation. Based on the above clinical findings and your assessment, please provide the following in your progress note:
1. Location of the ulcer/wound, including laterality.
2. Type (etiology) of ulcer/wound:
- Traumatic wound
- Pressure (decubitus) ulcer
- Other
Use of terms such as suspected, likely, concern for, or probable (associated with a specific diagnosis that is being evaluated, monitored, or treated as if it exists) are acceptable and can be coded in the inpatient setting, when documented at the
time of discharge.
Thank you,
Martha Simon RN, BSN
CDI Specialist
tiger text
Please use your independent medical judgment in providing your response.
*Source: National Pressure Ulcer Advisory Panel (NPUAP)
[2025-02-25 15:00] VITALS: BP 137/49
[2025-02-25] MEDS: DELTASONE 15 MG PO (17:34)
[2025-02-25] MEDS: LOVENOX 40 MG SC (17:34)
[2025-02-25] MEDS: SINGULAIR 10 MG PO (17:35)
[2025-02-25] MEDS: CRESTOR 40 MG PO (21:24)
[2025-02-25] MEDS: ASPIR LOW (ENTERIC COATED) 81 MG PO (21:24)
[2025-02-25 23:00] VITALS: BP 134/70
[2025-02-26] MEDS: MAXIPIME 1000 MG IV ×4 (00:11→17:46)
[2025-02-26] MEDS: STERILE WATER FOR INJECTION 10 ML IV ×4 (00:14→17:46)
[2025-02-26] MEDS: TYLENOL 650 MG PO ×2 (02:21→16:43)
[2025-02-26 07:24] VITALS: BP 128/61
[2025-02-26] MEDS: ADVAIR HFA 45/21 MCG INHALER 2 PUFF INH ×2 (08:01→19:45)
[2025-02-26] MEDS: SENOKOT-S 1 TABLET PO ×2 (08:10→21:50)
[2025-02-26] MEDS: ZETIA 10 MG PO (08:10)
[2025-02-26] MEDS: PROTONIX 40 MG PO (08:10)
[2025-02-26] MEDS: DELTASONE 15 MG PO (08:10)
[2025-02-26] MEDS: FLORASTOR 250 MG PO (08:10)
[2025-02-26] MEDS: PEPCID 20 MG PO (08:11)
[2025-02-26] MEDS: VITAMIN B-6 50 MG PO (08:11)
[2025-02-26] MEDS: NORVASC 5 MG PO (08:11)
[2025-02-26] MEDS: MAGNESIUM OXIDE 400 MG PO (08:12)
[2025-02-26] MEDS: FLOMAX 0.4 MG PO (08:12)
[2025-02-26] MEDS: PROSCAR 5 MG PO (08:12)
[2025-02-26] MEDS: TOPROL XL 25 MG PO (08:12)
[2025-02-26] MEDS: COLCHICINE 0.6 MG PO ×2 (08:13→21:49)
[2025-02-26] MEDS: DICLOFENAC 1% TOPICAL GEL 4 GRAM TOPICAL ×3 (08:14→21:53)
[2025-02-26] MEDS: MIRALAX PO (08:16)
[2025-02-26] MEDS: HYDROCORTISONE 2.5% CREAM TOPICAL ×2 (08:24→21:49)
--- NOTE | 2025-02-26 08:56 | W.PN.HOSP.TC ---
Today's Communication/Plan
-
Discharge planning
Assessment / Plan
Assessment / Plan
Gen-AAOx3, NAD
HEENT-NC, AT, anicteric, clear oral mm
Neck-supple
CV-reg, no M, +S1/S2
Lungs-clear B/L
Abd-soft, NT, ND
Ext-no edema
Musculoskeletal-no cyanosis, clubbing
Skin-warm and dry
Neuro-grossly non-focal
Psych-calm, cooperative
Pseudomonas surgical site infection of laminectomy -continue IV cefepime per infectious disease. Afebrile, WBC stable at 12k.
Spoke with infectious disease, no infectious disease indication for transfer to [facility].
Presumed PMR flare -complaining of bilateral shoulder and hip pain. ESR 67, CRP 33.8.
Prednisone 15 mg daily started 02/25, will continue current dose for now. If no improvement within 7 days can increase to 25 mg daily.
History of laminectomy lumbar region status post complication with wound dehiscence status post infection status post wound VAC placement and removal and suspected osteomyelitis
- Continue with IV cefepime as above.
- Wound still open to mildly open. Not able to express any purulent drainage.
- Unable to start any anti-inflammatory medication regimen especially steroids in the setting of polymyalgia rheumatica flareup as patient remains with wound not completely close and concern for wound dehiscence which better be managed at patient
primary surgical site Hospital.
- Patient follows closely with orthopedic, plastic surgery and infectious disease at [place].
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
- Unclear if due to allergies versus pressure versus medication
- Continue with hydrocortisone cream twice daily. Unclear if related to antibiotics as looks like ceftriaxone causes rash.
Primary sclerosing cholangitis
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
-AST ALT downtrending.
Essential hypertension
- continue amlodipine and metoprolol
hyperlipidemia
- continue ezetimibe and rosuvastatin
CAD status post stents
nonischemic cardiomyopathy
- continue aspirin
PAD
BPH
- continue alfuzosin and finasteride
Chronic normocytic anemia -suspect due to chronic inflammation. Hemoglobin stable.
GERD
- continue famotidine and omeprazole
Full code
Dispo -medically stable for discharge back to rehab. Case management aware and working on it. Discussed with patient and family.
Anticipated Discharge: Today
Subjective/Interval History
-
Date of Service: February 26, 2025
Patient seen and examined. Feels somewhat better today compared to yesterday in terms of myalgias in the shoulders.
Objective Data
-
Vital Signs:
Vital Signs
Temp Pulse Resp BP Pulse Ox
98.2 F 75 14 128/61 99
02/26/25 07:24 02/26/25 08:12 02/26/25 08:04 02/26/25 08:12 02/26/25 08:04
I&O
02/25/25 02/26/25 02/27/25
06:59 06:59 06:59
Intake Total 600 / 600 860 / 860
Output Total 650 / 650 975 / 975
Balance -50 / -50 -115 / -115
Review of Systems
-
History Source: Patient
All other systems: Reviewed and negative
--- NOTE | 2025-02-26 12:55 | CM ---
Patient seen at bedside with
[facility] SNF has no beds available
discussed with additional referrals to be added in careport
additional referrals sent in careport
appointment was made by CM with Dr. Luis Myers (plastic surgeon) for SundayMarch 06 at 2:30pm at [facility]
PLAN: SNF, pending acceptance/bed availability
--- NOTE | 2025-02-26 14:09 | W.PN.ID1 ---
Date of Service
Date of Service: February 26, 2025
Today's Communication
- stable for dc with follow up with plastics and orthopedics
Assessment / Plan
Surgical site infection - laminectomy
due to Pseudomonas
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
Possible PMR flare
Pruritic rash - stable
- Suspect rash due to cefepime. Pt with h/o rash on ceftriaxone.
Pt declined offer to replace cefepime with meropenem.
Continue supportive care. Itching is tolerable with topical steroid.
- L sided PICC line in place
- continue cefepime 1 g q6 hrs; duration is planned through feb
- blood cultures neg to date
- pain management per hospitalist
- stable for dc with follow up with plastics and orthopedics
Chief Complaint
-: Other (Wound dehiscence)
Subjective / Review of Systems
spoke with Dr Lee yesterday, he confirmed there is no hardwear in Mr Jimenez's back and there were no plans for suppression. He accepts the patient back under his care for outpatient antibiotic treatment
Afebrile
BP stable
steroids per primary team
Vital Signs / Physical Exam
Vital Signs
Vital Signs
Temp Pulse Resp BP Pulse Ox
98.2 F 75 14 128/61 99
02/26/25 07:24 02/26/25 08:12 02/26/25 08:04 02/26/25 08:12 02/26/25 08:04
Physical Exam
Constitutional: No Acute Distress
Cardiovascular: Regular Rate and S1/S2; Negative Murmur or Rub
Pulmonary: Clear and Symmetric; Negative Wheezes or Rales
Gastrointestinal: Soft, Non Tender, Non Distended and Normal Bowel Sounds
Skin: Warm and Dry; Negative Rash or Jaundice
Wound: Other (surgical site clean, small area of dehiscence with small improvement in size)
Objective Data
Lab Data
Lab Results
02/25/25 04:03
02/25/25 04:03
ESR 67 mm/hour (0-20) H 02/24/25 04:18
Estimated Creat Clear 53 ml/min 02/25/25 04:03
Lactic Acid Cancelled 02/19/25 17:00
Total Bilirubin 0.6 mg/dl (0.2-1.3) 02/25/25 04:03
AST 45 U/L (17-59) 02/25/25 04:03
ALT 45 U/L (0-50) 02/25/25 04:03
Alkaline Phosphatase 159 U/L (38-126) H 02/25/25 04:03
C-Reactive Protein 33.80 mg/L (0.0-10.00) H 02/24/25 04:18
Most recent labs reviewed.
Micro Results:
02/19/25 13:18 Blood Culture - Final
Blood/Venous No Growth - Final Report
02/19/25 13:18 Blood Culture - Final
Blood/Venous No Growth - Final Report
02/20/25 17:02 MRSA Screen - Final
Nose No Methicillin Resistant Staphylococcus aureus isolated.
02/19/25 14:53 Influenza Types A & B (MYKEL) - Final
Nasal Swab Negative for Influenza A & B, NAAT
Negative results must be combined with clinical observations
and patient history.
Nucleic Acid Amplification test (NAAT)performed on the
MIGSIF platform.
[2025-02-26 14:55] VITALS: BP 138/53
--- NOTE | 2025-02-26 15:27 | WOUNDNOTE ---
WOC RN note: macario Cerda re: recommend an air mattress at SNF; patient has a sacral/coccyx pressure injury.
--- NOTE | 2025-02-26 16:15 | WOUNDNOTE ---
[facility] RN note: Patient sitting in recliner with Le's down. He stated he sleeps in the chair because the air mattress is not comfortable. Offered to switch patient's bed so he can try to sleep in bed however, he declined the offer. +LE edema. R plantar
great toe and R plantar heel with dry callus. Protective dry gauze applied to R great toe. Bilateral knee high Tubigrip reapplied. Skin on heels intact. Patient reports he likes the flat surgical shoes. Lumbar wound with slightly less yellow slough
than last week. Moderate yellow drainage. Less surrounding erythema. Sacral/coccyx ulcer freight car cleaner than last week. Wound care done to back and sacrum as ordered. Discussed with CATARINA Nichols. t/c Patient's plastic surgeon Dr. Luis Myers's office
[phone], spoke with Radha and gave detailed lumbar wound update asking if surgeon wants to continue with current dressing change of daily ABD pad after cleansing with saline or Vashe or if surgeon would like to add Santyl ointment prn
necrotic tissue to the current wound care. Radha stated it may take 24-48hours for a response. CM made a follow up appointment with Dr. Vu on 03/06. Plan is SNF transfer when bed obtained.
--- NOTE | 2025-02-26 16:22 | WOUNDNOTE ---
PLANTAR GREAT TOE
[2025-02-26] MEDS: LOVENOX 40 MG SC (17:46)
[2025-02-26] MEDS: SINGULAIR 10 MG PO (17:46)
[2025-02-26] MEDS: CRESTOR 40 MG PO (21:50)
[2025-02-26] MEDS: ASPIR LOW (ENTERIC COATED) 81 MG PO (21:51)
[2025-02-26 22:58] VITALS: BP 123/45
[2025-02-27] MEDS: STERILE WATER FOR INJECTION 10 ML IV ×4 (00:11→17:09)
[2025-02-27] MEDS: MAXIPIME 1000 MG IV ×4 (00:11→17:09)
[2025-02-27] MEDS: TYLENOL 650 MG PO ×2 (05:00→13:52)
[2025-02-27 08:08] VITALS: BP 103/61
[2025-02-27] MEDS: ADVAIR HFA 45/21 MCG INHALER 2 PUFF INH ×2 (08:15→19:52)
[2025-02-27] MEDS: DELTASONE 15 MG PO (08:26)
[2025-02-27] MEDS: MAGNESIUM OXIDE 400 MG PO (08:26)
[2025-02-27] MEDS: PEPCID 20 MG PO (08:27)
[2025-02-27] MEDS: NORVASC PO (08:27)
[2025-02-27] MEDS: FLOMAX 0.4 MG PO (08:27)
[2025-02-27] MEDS: FLORASTOR 250 MG PO (08:27)
[2025-02-27] MEDS: VITAMIN B-6 50 MG PO (08:27)
[2025-02-27] MEDS: SENOKOT-S 1 TABLET PO ×2 (08:27→20:28)
[2025-02-27] MEDS: PROSCAR 5 MG PO (08:27)
[2025-02-27] MEDS: PROTONIX 40 MG PO (08:27)
[2025-02-27] MEDS: COLCHICINE 0.6 MG PO ×2 (08:28→20:28)
[2025-02-27] MEDS: ZETIA 10 MG PO (08:28)
[2025-02-27] MEDS: TOPROL XL 25 MG PO (08:28)
[2025-02-27] MEDS: LASIX PO (08:29)
[2025-02-27] MEDS: DICLOFENAC 1% TOPICAL GEL 4 GRAM TOPICAL ×2 (08:30→16:57)
[2025-02-27] MEDS: HYDROCORTISONE 2.5% CREAM 1 APPLIC TOPICAL ×2 (08:31→20:29)
[2025-02-27] MEDS: MIRALAX PO (08:32)
--- NOTE | 2025-02-27 10:54 | W.PN.HOSP.TC ---
Today's Communication/Plan
-
Discharge planning
Assessment / Plan
Assessment / Plan
Gen-AAOx3, NAD
HEENT-NC, AT, anicteric, clear oral mm
Neck-supple
CV-reg, no M, +S1/S2
Lungs-clear B/L
Abd-soft, NT, ND
Ext-no edema
Musculoskeletal-no cyanosis, clubbing
Skin-warm and dry
Neuro-grossly non-focal
Psych-calm, cooperative
Pseudomonas surgical site infection of laminectomy -continue IV cefepime per infectious disease. Afebrile, WBC stable at 12k.
Spoke with infectious disease, no infectious disease indication for transfer to [facility].
Presumed PMR flare -complaining of bilateral shoulder and hip pain. ESR 67, CRP 33.8.
Prednisone 15 mg daily started 02/25, will continue current dose for now. If no improvement within 7 days can increase to 25 mg daily.
Overall pain is improving.
History of laminectomy lumbar region status post complication with wound dehiscence status post infection status post wound VAC placement and removal and suspected osteomyelitis
- Continue with IV cefepime as above.
- Wound still open to mildly open. Not able to express any purulent drainage.
- Unable to start any anti-inflammatory medication regimen especially steroids in the setting of polymyalgia rheumatica flareup as patient remains with wound not completely close and concern for wound dehiscence which better be managed at patient
primary surgical site Hospital.
- Patient follows closely with orthopedic, plastic surgery and infectious disease at [place].
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
- Unclear if due to allergies versus pressure versus medication
- Continue with hydrocortisone cream twice daily. Unclear if related to antibiotics as looks like ceftriaxone causes rash.
Primary sclerosing cholangitis
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
-AST ALT downtrending.
Essential hypertension
- continue amlodipine and metoprolol
hyperlipidemia
- continue ezetimibe and rosuvastatin
CAD status post stents
nonischemic cardiomyopathy
- continue aspirin
PAD
BPH
- continue alfuzosin and finasteride
Chronic normocytic anemia -suspect due to chronic inflammation. Hemoglobin stable.
GERD
- continue famotidine and omeprazole
Full code
Dispo -medically stable for discharge back to rehab. Case management aware and working on it. Discussed with patient and family.
Anticipated Discharge: Today
Subjective/Interval History
-
Date of Service: February 27, 2025
Patient seen and examined. States that his polymyalgia pain overall has improved.
Objective Data
-
Vital Signs:
Vital Signs
Temp Pulse Resp BP Pulse Ox
97.6 F 69 16 103/61 100
02/27/25 08:08 02/27/25 08:29 02/27/25 08:08 02/27/25 08:29 02/27/25 08:08
I&O
02/26/25 02/27/25 02/28/25
06:59 06:59 06:59
Intake Total 860 / 860 1080 / 1080
Output Total 975 / 975 600 / 600
Balance -115 / -115 480 / 480
Review of Systems
-
History Source: Patient
All other systems: Reviewed and negative
--- NOTE | 2025-02-27 11:23 | CM ---
Addendum entered by Lovely Cerda 02/27/25 14:56:
Patient/ agreeable with [facility]
updated careport - spoke with Leila & updated & patient will need air mattress
Call Jein ruelas tomorrow with time for transport - Jeni [phone]
PLAN: [facility] tomorrow 02/28
Report #: [phone]
Fax #: [phone]
transportation forms on chart
Addendum entered by Lovely Cerda 02/27/25 14:17:
Daughter Baribe spoke with Mara - no male beds available
Called Samira from [facility] [place] they cannot accept patient
Left message with Eliana ruelas for [facility] SN[facility] [phone]
[facility] can accept tomorrow - spoke with Leila ruelas [phone]
hospitalist
Original Note:
spoke with daughter Barbie and CM informed her that [place] did not have any beds available & they did not have any upcoming discharges.
CM explained that I had called [facility] as well & spoke with Virgie
Daughter states that she will call [facility] and speak with Virgie
PLAN: SNF, pending bed availability
--- NOTE | 2025-02-27 13:13 | PTCARENOTE ---
1 unit of PRBC started as ordered. Pt resting in bed comfortably, no signs or symptoms of reaction. Will continue to monitor.
[2025-02-27 14:47] VITALS: BP 139/55; PULSE 75; O2SAT 100
--- NOTE | 2025-02-27 15:12 | WOUNDNOTE ---
[facility] RN note: Received call from nurse Amarilis from Dr. Vu's office earlier today who requested to upload lumbar wound photo and then surgeon will decide if any change in wound care requested. t/c Spoke with patient's earlier who
uploaded wound pictures into patient's my su chart early this afternoon after RN Cata did his wound care. t/c Spoke with Dr. Vu's nurse Amarilis who confirmed they received the wound photos and Dr. Vu requested adding antibiotic ointment
such as Polysporin or Neosporin with the current wound care, not Santyl ointment. Updated Dr. Perez who approved adding Polysporin to current lumbar wound care. Updated nursing care plan and discharge instructions.
[2025-02-27 15:50] VITALS: BP 129/50
[2025-02-27] MEDS: LOVENOX 40 MG SC (17:09)
[2025-02-27] MEDS: SINGULAIR 10 MG PO (17:10)
[2025-02-27] MEDS: ASPIR LOW (ENTERIC COATED) 81 MG PO (20:27)
[2025-02-27] MEDS: CRESTOR 40 MG PO (20:28)
[2025-02-27] MEDS: DICLOFENAC 1% TOPICAL GEL TOPICAL ×2 (20:29→20:32)
--- NOTE | 2025-02-27 21:49 | PTCARENOTE ---
Assumed care of patient from previous RN. Patient offers no complaints at this time. Tubigrips removed per patient request following rounding. Left arm PICC patent. Satting well on room air. Patient refused Diclofenac gel to B/L shoulders this
evening stating 'No, I don't need that, they feel fine right now.' Also pointed out to this RN residual dry areas and scabbing that appears to be from rash that was previously present. Red raised rash does still appear to be present on arms/back --
much improved since last weekend when this RN cared for patient, area ASA. Patient resting in chair, prefers to sleep in chair at night. Call nova is in reach, will monitor.
[2025-02-27 23:00] VITALS: BP 131/49
[2025-02-28] MEDS: STERILE WATER FOR INJECTION 10 ML IV ×3 (00:13→11:28)
[2025-02-28] MEDS: MAXIPIME 1000 MG IV ×3 (00:14→11:28)
[2025-02-28] MEDS: TYLENOL 650 MG PO ×2 (01:11→08:25)
[2025-02-28 07:00] VITALS: BP 127/57
[2025-02-28] MEDS: ADVAIR HFA 45/21 MCG INHALER 2 PUFF INH (08:06)
[2025-02-28] MEDS: PROTONIX 40 MG PO (08:23)
[2025-02-28] MEDS: VITAMIN B-6 50 MG PO (08:23)
[2025-02-28] MEDS: DELTASONE 15 MG PO (08:23)
[2025-02-28] MEDS: PROSCAR 5 MG PO (08:23)
[2025-02-28] MEDS: COLCHICINE 0.6 MG PO (08:23)
[2025-02-28] MEDS: FLOMAX 0.4 MG PO (08:23)
[2025-02-28] MEDS: PEPCID 20 MG PO (08:23)
[2025-02-28] MEDS: MAGNESIUM OXIDE 400 MG PO (08:23)
[2025-02-28] MEDS: SENOKOT-S 1 TABLET PO (08:23)
[2025-02-28] MEDS: FLORASTOR 250 MG PO (08:23)
[2025-02-28] MEDS: MIRALAX PO (08:23)
[2025-02-28] MEDS: HYDROCORTISONE 2.5% CREAM 1 APPLIC TOPICAL (08:24)
[2025-02-28] MEDS: DICLOFENAC 1% TOPICAL GEL 4 GRAM TOPICAL (08:24)
[2025-02-28] MEDS: ZETIA 10 MG PO (08:25)
[2025-02-28] MEDS: POLYSPORIN OINTMENT 1 APPLIC TOPICAL (08:25)
[2025-02-28] MEDS: NORVASC 5 MG PO (08:25)
[2025-02-28] MEDS: TOPROL XL 25 MG PO (08:26)
--- NOTE | 2025-02-28 10:18 | W.DS.TRANS ---
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
-
Discharge Instructions:
Discharge Diagnosis/Procedures Polymyalgia rheumatica flare, Pseudomonas
surgical site infection of laminectomy
Diet Regular
Activity With assistance,As tolerated
Driving Restrictions No driving
Bathing Restrictions None
Instructions:
Stand-Alone Forms:
Changes to Home Medications: No
Discharge Medications:
DC Medications w/original date entered in [email or web address]
alfuzosin 10 mg tablet,extended release 24 hr (Uroxatral) 10 mg PO DAILY Urinary Issue 06/03/10
coenzyme Q10 100 mg capsule (Co Q-10) 200 mg PO DAILY Supplement 06/12/18
nitroglycerin 0.4 mg sublingual tablet 0.4 mg sublingual [id number] PRN chest pain #25 tabs 06/13/18
omeprazole 20 mg capsule,delayed release 20 mg PO DAILY Gastrointestinal Issue 01/24/19
amlodipine 5 mg tablet 5 mg PO DAILY Blood Pressure 06/13/21
aspirin 81 mg tablet,delayed release 81 mg PO HS Blood Clot Prevention/Tx 06/13/21
famotidine 20 mg tablet 20 mg PO DAILY Gastrointestinal Issue 06/13/21
finasteride 5 mg tablet 5 mg PO DAILY Urinary Issue 06/13/21
montelukast 10 mg tablet 10 mg PO QPM Lung/Breathing Issues 06/13/21
Saccharomyces boulardii 250 mg capsule (Florastor) 250 mg PO DAILY probiotic 02/19/25
calcium 500 mg (as carbonate)-vitamin D3 10 mcg (400 unit) tablet (Calcium 500 + D) 1 tab PO DAILY Supplement 02/19/25
cholecalciferol (vitamin D3) 25 mcg (1,000 unit) tablet (Vitamin D3) 25 mcg PO DAILY Supplement 02/19/25
colchicine 0.6 mg tablet 0.6 mg PO BID Gout 02/19/25
cyanocobalamin (vitamin B-12) 1,000 mcg tablet 1,000 mcg PO DAILY Supplement 02/19/25
diclofenac sodium 1 % topical gel 4 g topical TID b/l shoulders 02/19/25
ezetimibe 10 mg tablet (Zetia) 10 mg PO DAILY cholesterol 02/19/25
fluticasone 100 mcg-salmeterol 50 mcg/dose blistr powdr for inhalation (Advair Diskus) 1 inh inhalation R BID Lung/Breathing Issues 02/19/25
furosemide 20 mg tablet (Lasix) 20 mg PO [id number] Fluid Retention/Swelling 02/19/25
lactulose 10 gram/15 mL oral solution 20 g PO [id number] PRN constipation 02/19/25
magnesium oxide 400 mg PO DAILY Supplement 02/19/25
metoprolol succinate 25 mg tablet,extended release 24 hr (Toprol XL) 25 mg PO DAILY Blood Pressure 02/19/25
pyridoxine (vitamin B6) 50 mg tablet 50 mg PO DAILY Supplement 02/19/25
rosuvastatin 40 mg tablet (Crestor) 40 mg PO HS cholesterol 02/19/25
sennosides 8.6 mg-docusate sodium 50 mg capsule (Senna Plus) 1 tab PO BID Constipation 02/19/25
sodium phosphates 19 gram-7 gram/118 mL enema (Fleet Enema) 118 ml LA DAILYPRN PRN constipation 02/19/25
therapeutic multivitamin 1 tab PO DAILY Supplement 02/19/25
cefepime 1 gram solution for injection 1,000 mg IV Q6H #0 ea 02/27/25
collagenase clostridium histo. 250 unit/gram topical ointment (Santyl) 1 applic topical PRN PRN necrotic tissue sacral ulcer #0 grams 02/27/25
hydrocortisone 2.5 % topical cream 1 applic topical BID #0 grams 02/27/25
polyethylene glycol 3350 17 gram oral powder packet 17 g PO DAILY #0 ea 02/27/25
prednisone 5 mg tablet 15 mg (3 x 5 mg) PO DAILY #0 tabs 02/27/25
Home Medication Changes
Pending Results: No
--- NOTE | 2025-02-28 11:02 | W.PN.HOSP.TC ---
Today's Communication/Plan
-
Discharge
Assessment / Plan
Assessment / Plan
Gen-AAOx3, NAD
HEENT-NC, AT, anicteric, clear oral mm
Neck-supple
CV-reg, no M, +S1/S2
Lungs-clear B/L
Abd-soft, NT, ND
Ext-no edema
Musculoskeletal-no cyanosis, clubbing
Skin-warm and dry
Neuro-grossly non-focal
Psych-calm, cooperative
Pseudomonas surgical site infection of laminectomy -continue IV cefepime per infectious disease. Afebrile, WBC stable at 12k.
Spoke with infectious disease, no infectious disease indication for transfer to [facility].
Presumed PMR flare -complaining of bilateral shoulder and hip pain. ESR 67, CRP 33.8.
Prednisone 15 mg daily started 02/25, will continue current dose for now. If no improvement within 7 days can increase to 25 mg daily.
Today still has some hip and shoulder girdle achiness.
I did offer to increase prednisone to 25 mg daily but patient declined and wants to stay on the 15 mg for now.
History of laminectomy lumbar region status post complication with wound dehiscence status post infection status post wound VAC placement and removal and suspected osteomyelitis
- Continue with IV cefepime as above.
- Wound still open to mildly open. Not able to express any purulent drainage.
- Unable to start any anti-inflammatory medication regimen especially steroids in the setting of polymyalgia rheumatica flareup as patient remains with wound not completely close and concern for wound dehiscence which better be managed at patient
primary surgical site Hospital.
- Patient follows closely with orthopedic, plastic surgery and infectious disease at [place].
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
- Unclear if due to allergies versus pressure versus medication
- Continue with hydrocortisone cream twice daily. Unclear if related to antibiotics as looks like ceftriaxone causes rash.
Primary sclerosing cholangitis
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
-AST ALT downtrending.
Essential hypertension
- continue amlodipine and metoprolol
hyperlipidemia
- continue ezetimibe and rosuvastatin
CAD status post stents
nonischemic cardiomyopathy
- continue aspirin
PAD
BPH
- continue alfuzosin and finasteride
Chronic normocytic anemia -suspect due to chronic inflammation. Hemoglobin stable.
GERD
- continue famotidine and omeprazole
Full code
Dispo -medically stable for discharge back to rehab. Case management aware and working on it. Discussed with patient and family.
35-minute spent in discharge process.
Anticipated Discharge: Today
Subjective/Interval History
-
Date of Service: February 28, 2025
Patient seen and examined. No new complaints.
Objective Data
-
Vital Signs:
Vital Signs
Temp Pulse Resp BP Pulse Ox
97.6 F 74 16 127/57 98
02/28/25 07:00 02/28/25 08:25 02/28/25 08:11 02/28/25 08:25 02/28/25 08:11
I&O
02/27/25 02/28/25 03/01/25
06:59 06:59 06:59
Intake Total 1080 / 1080 980 / 980
Output Total 600 / 600 900 / 900
Balance 480 / 480 80 / 80
Review of Systems
-
History Source: Patient
All other systems: Reviewed and negative
--- NOTE | 2025-02-28 11:13 | CM ---
Following up on patient. CRISPIN Willis confirmed discharge and transport was arranged for 1pm today.
Jeni, #[phone] the liaison from [place] was informed and was as well.
[facility] tomorrow 02/28
Report #: [phone]
Fax #: [phone]
PLAN: To SNF at [place]. IMM Completed
[2025-02-28] MEDS: FLUZONE HIGH-DOSE 2025-26 0.5 ML IM (11:29)
[2025-02-28 12:59] VITALS: BP 123/56
== END 2025-02-28 13:09 | DRG 862 ==
LOC: 3 WEST ACU 22:46
PROVIDERS: Nurse Practitioner Family; ADMITTING PHYSICIAN Internal Medicine; ATTENDING PHYSICIAN Hospitalist; EMERGENCY PHYSICIAN Emergency Medicine; FAMILY PHYSICIAN Family Medicine; OTHER PHYSICIAN Student in an Organized Health Care Education/Training Program
PROC: 02HV33Z Insertion of Infusion Device into Superior Vena Cava, Percutaneous Approach (ICD-10-PCS; 2025-02-19)
DX: T81.41XA Infection following a procedure, superficial incisional surgical site, initial encounter (principal); L89.153 Pressure ulcer of sacral region, stage 3; T81.30XA Disruption of wound, unspecified, initial encounter; G96.00 Cerebrospinal fluid leak, unspecified; M86.9 Osteomyelitis, unspecified; I42.8 Other cardiomyopathies; K83.01 Primary sclerosing cholangitis; L89.302 Pressure ulcer of unspecified buttock, stage 2; R21 Rash and other nonspecific skin eruption; D72.829 Elevated white blood cell count, unspecified; D64.9 Anemia, unspecified; Y83.8 Other surgical procedures as the cause of abnormal reaction of the patient, or of later complication, without mention of misadventure at the time of the procedure; B96.5 Pseudomonas (aeruginosa) (mallei) (pseudomallei) as the cause of diseases classified elsewhere; I10 Essential (primary) hypertension; E78.00 Pure hypercholesterolemia, unspecified; I25.10 Atherosclerotic heart disease of native coronary artery without angina pectoris; I73.9 Peripheral vascular disease, unspecified; N40.0 Benign prostatic hyperplasia without lower urinary tract symptoms; K21.9 Gastro-esophageal reflux disease without esophagitis; M35.3 Polymyalgia rheumatica; Z11.52 Encounter for screening for COVID-19; Z79.899 Other long term (current) drug therapy
CPT/HCPCS: 71046; 80053; 81003; 81015; 83605; 85025; 85027; 85652; 86140; 87040; 87070; 87502; 87811; 90662; 93005; 94640; 96374; 96376; 97110; 97116; 97163; 99284; G0008; J2997

== ENCOUNTER → 2025-03-23 11:30 | Outpatient (REF) | payer MEDICARE, OTHER, SELFPAY | LOC: DHVS 11:30 | PROVIDERS: ATTENDING PHYSICIAN Surgery Vascular Surgery; FAMILY PHYSICIAN Family Medicine; OTHER PHYSICIAN Internal Medicine Rheumatology | DX: M15.9 Polyosteoarthritis, unspecified (principal); I73.9 Peripheral vascular disease, unspecified | CPT/HCPCS: 73030; 73523; 93922; 93925 ==

== ENCOUNTER → 2025-03-30 10:21 | Outpatient (REF) | payer MEDICARE, OTHER, SELFPAY | LOC: WOUND 10:21 | PROVIDERS: ATTENDING PHYSICIAN Surgery; FAMILY PHYSICIAN Family Medicine | DX: L97.512 Non-pressure chronic ulcer of other part of right foot with fat layer exposed (principal); M20.31 Hallux varus (acquired), right foot; L89.150 Pressure ulcer of sacral region, unstageable; M54.9 Dorsalgia, unspecified; I73.9 Peripheral vascular disease, unspecified; Z95.5 Presence of coronary angioplasty implant and graft | CPT/HCPCS: 73630; 99204 ==

== ENCOUNTER → 2025-03-30 11:32 | Outpatient (REF) | payer MEDICARE, OTHER, SELFPAY | LOC: RAD 11:32 | PROVIDERS: ATTENDING PHYSICIAN Podiatrist; FAMILY PHYSICIAN Family Medicine | DX: L89.892 Pressure ulcer of other site, stage 2 (principal) | CPT/HCPCS: 73630 ==

== ENCOUNTER → 2025-04-06 13:45 | Outpatient (REF) | payer MEDICARE, OTHER, SELFPAY | LOC: WOUND 13:45 | PROVIDERS: ATTENDING PHYSICIAN Surgery; FAMILY PHYSICIAN Family Medicine | DX: L97.512 Non-pressure chronic ulcer of other part of right foot with fat layer exposed (principal); M20.31 Hallux varus (acquired), right foot; L89.150 Pressure ulcer of sacral region, unstageable; M54.9 Dorsalgia, unspecified; I73.9 Peripheral vascular disease, unspecified; Z95.5 Presence of coronary angioplasty implant and graft; S21.209A Unspecified open wound of unspecified back wall of thorax without penetration into thoracic cavity, initial encounter; Y84.8 Other medical procedures as the cause of abnormal reaction of the patient, or of later complication, without mention of misadventure at the time of the procedure | CPT/HCPCS: 11042 ==

== ENCOUNTER 2025-04-13 14:38 | Outpatient (REF) | payer MEDICARE, OTHER, SELFPAY | END 2025-04-13 23:59 | disposition home or self-care (01) | LOC: WOUND 14:38 | PROVIDERS: ATTENDING PHYSICIAN Surgery; FAMILY PHYSICIAN Family Medicine | DX: L97.512 Non-pressure chronic ulcer of other part of right foot with fat layer exposed (principal); M20.31 Hallux varus (acquired), right foot; S21.209A Unspecified open wound of unspecified back wall of thorax without penetration into thoracic cavity, initial encounter; L89.150 Pressure ulcer of sacral region, unstageable; M54.9 Dorsalgia, unspecified; I73.9 Peripheral vascular disease, unspecified; Z95.5 Presence of coronary angioplasty implant and graft; X58.XXXA Exposure to other specified factors, initial encounter | CPT/HCPCS: 11042 ==

== ENCOUNTER 2025-04-14 14:05 | Outpatient (REF) | payer MEDICARE, OTHER, SELFPAY | END 2025-04-14 23:59 | disposition home or self-care (01) | LOC: WOUND 14:05 | PROVIDERS: ATTENDING PHYSICIAN Surgery; FAMILY PHYSICIAN Family Medicine | DX: L97.512 Non-pressure chronic ulcer of other part of right foot with fat layer exposed (principal); M20.31 Hallux varus (acquired), right foot; L89.150 Pressure ulcer of sacral region, unstageable; M54.9 Dorsalgia, unspecified; Z95.5 Presence of coronary angioplasty implant and graft; I73.9 Peripheral vascular disease, unspecified; S21.209A Unspecified open wound of unspecified back wall of thorax without penetration into thoracic cavity, initial encounter; X58.XXXA Exposure to other specified factors, initial encounter | CPT/HCPCS: 99213 ==

== ENCOUNTER 2025-04-30 12:37 | Outpatient (REF) | payer MEDICARE, OTHER, SELFPAY | END 2025-04-30 23:59 | disposition home or self-care (01) | LOC: WOUND 12:37 | PROVIDERS: ATTENDING PHYSICIAN Registered Nurse | DX: L97.512 Non-pressure chronic ulcer of other part of right foot with fat layer exposed (principal); M20.31 Hallux varus (acquired), right foot; S21.209A Unspecified open wound of unspecified back wall of thorax without penetration into thoracic cavity, initial encounter; L89.150 Pressure ulcer of sacral region, unstageable; M54.9 Dorsalgia, unspecified; I73.9 Peripheral vascular disease, unspecified; Z95.5 Presence of coronary angioplasty implant and graft; X58.XXXA Exposure to other specified factors, initial encounter | CPT/HCPCS: 99213 ==

== ENCOUNTER → 2025-05-01 15:54 | Outpatient (REF) | payer MEDICARE, OTHER, SELFPAY | LOC: RCS 15:54 | PROVIDERS: ATTENDING PHYSICIAN Internal Medicine; FAMILY PHYSICIAN Family Medicine | DX: I42.8 Other cardiomyopathies (principal); I25.10 Atherosclerotic heart disease of native coronary artery without angina pectoris; I73.9 Peripheral vascular disease, unspecified; Z95.2 Presence of prosthetic heart valve | CPT/HCPCS: 93306 ==

== ENCOUNTER 2025-05-11 14:34 | Outpatient (REF) | payer MEDICARE, OTHER, SELFPAY | END 2025-05-11 23:59 | disposition home or self-care (01) | LOC: WOUND 14:34 | PROVIDERS: ATTENDING PHYSICIAN Registered Nurse; FAMILY PHYSICIAN Family Medicine | DX: L97.512 Non-pressure chronic ulcer of other part of right foot with fat layer exposed (principal); M20.31 Hallux varus (acquired), right foot; S21.209A Unspecified open wound of unspecified back wall of thorax without penetration into thoracic cavity, initial encounter; X58.XXXA Exposure to other specified factors, initial encounter; L89.150 Pressure ulcer of sacral region, unstageable; M54.9 Dorsalgia, unspecified; I73.9 Peripheral vascular disease, unspecified; Z95.5 Presence of coronary angioplasty implant and graft | CPT/HCPCS: 99213 ==

== ENCOUNTER 2025-05-18 13:35 | Outpatient (REF) | payer MEDICARE, OTHER, SELFPAY | END 2025-05-18 23:59 | disposition home or self-care (01) | LOC: WOUND 13:35 | PROVIDERS: ATTENDING PHYSICIAN Registered Nurse; FAMILY PHYSICIAN Family Medicine | DX: L97.512 Non-pressure chronic ulcer of other part of right foot with fat layer exposed (principal); M20.31 Hallux varus (acquired), right foot; S21.20 Unspecified open wound of back wall of thorax without penetration into thoracic cavity; L89.150 Pressure ulcer of sacral region, unstageable; M54.9 Dorsalgia, unspecified; I73.9 Peripheral vascular disease, unspecified; Z95.5 Presence of coronary angioplasty implant and graft | CPT/HCPCS: 11042 ==

== ENCOUNTER 2025-05-25 13:18 | Outpatient (REF) | payer MEDICARE, OTHER, SELFPAY | END 2025-05-25 23:59 | disposition home or self-care (01) | LOC: WOUND 13:18 | PROVIDERS: ATTENDING PHYSICIAN Registered Nurse; FAMILY PHYSICIAN Family Medicine | DX: L97.512 Non-pressure chronic ulcer of other part of right foot with fat layer exposed (principal); M20.31 Hallux varus (acquired), right foot; S21.20 Unspecified open wound of back wall of thorax without penetration into thoracic cavity; L89.150 Pressure ulcer of sacral region, unstageable; M54.9 Dorsalgia, unspecified; Z95.5 Presence of coronary angioplasty implant and graft; I73.9 Peripheral vascular disease, unspecified | CPT/HCPCS: 99213 ==